=== PATIENT | female | born 1935 ===

== ENCOUNTER 2024-01-09 14:44 | Observation (INO) ==
[2024-01-09] MEDS: FAMOTIDINE 20MG IV PUSH 20 MG/5 ML SYR IV STA (15:12)
[2024-01-09 15:20] LABS: Basophils # (auto) 0.04 K/uL (0.00-0.20); Basophils % (auto) 0.5 %; Eosinophils # (auto) 0.12 K/uL (0.00-0.50); Eosinophils % (auto) 1.4 %; Hematocrit (blood only) 40.6 % (37.0-47.0); Immature Granulocytes # (auto) 0.04 K/uL (0.01-0.20); Immature Granulocytes % (auto) 0.5 %; Lymphocytes # (auto) 2.14 K/uL (1.20-3.40); Mean Corpuscular Volume 90.6 fL (80.0-100.0); Monocytes # (auto) 1.04 K/uL (0.11-0.59); Monocytes % (auto) 12.1 %; Neutrophils # (auto) 5.19 K/uL (1.40-6.50); Neutrophils % (auto) 60.5 %; Platelet Count 186 K/uL (130-400); RDW Coefficient of Variation 13.6 % (11.5-14.5); RDW Standard Deviation 45.3 fL (36.4-46.3); Red Blood Count 4.48 M/uL (4.20-5.40); White Blood Count 8.57 K/ul (4.8-10.8)
[2024-01-09 15:31] LABS: Potassium 4.1 mmol/L (3.5-5.1)
[2024-01-09 15:32] LABS: Albumin Globulin Ratio 1.5 (0.9-2); Albumin Level 4.2 gm/dl (3.4-5.0); BUN Creatinine Ratio 11.5 (10-20); Bilirubin,Total 0.3 mg/dl (0.2-1.0); Calcium 9.3 mg/dl (8.6-10.3); Creatinine Clr Calc Pharmacy 28.5 ml/min; Est GFR (African American) 41.7 ml/min; Globulin 2.8 gm/dl (2.5-4.0)
[2024-01-09 15:43] LABS: Troponin I High Sensitivity 68.5 pg/ml (0-14)
--- NOTE | 2024-01-09 15:52 | Emergency Department Note ---
Impression & Plan Chest pain, Non-ST elevation NV (NSTEMI) ED Provider Note Provider: Sebastien Bhandari MD DATE OF SERVICE: 01/09/2024 CHIEF COMPLAINT: Chest discomfort HISTORY OF PRESENT ILLNESS: Patient is a 88-year-old female history of dementia, A-fib on Eliquis and GERD presenting here today via ambulance from her facility. EMS states the patient had some chest pain was brought here for evaluation today. They tend to give aspirin the patient seem to have vomited this up quick order. Patient herself states she has had a little bit of central to left lower chest discomfort. Does know her age but unable to give me a clear detail of what happened today. Denies nausea or vomiting to me at this time. Denies other abdominal pain here initially. Daughter shortly thereafter arrives. Confirms the patient is at her baseline with her dementia. Reported transient episode around 10 days morning of pain but not atypical for her to have a little bit of heartburn or chest discomfort at times. Had a negative cardiac workup in March including stress test by her report. Around 05-17 30p the patient had onset of left chest pain that seem to worsen a bit different and given ongoing symptoms came here for evaluation. Patient often reports feeling some numbness or atypical pain across the left chest. No trauma reported or syncope. No cardiac history otherwise reported. Daughter reports the patient is quite sensitive to pain even getting blood work with a blood pressure cuff can make her tearful and anxious. 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 EOMI. NECK: Trachea midline. ENT: Mucous membranes pink and moist. LUNGS: Airway patent. No retractions. Breath sounds clear with good air entry bilaterally. HEART: Regular rate and rhythm. No chest wall tenderness ABDOMEN: Soft and non-tender, without guarding or rebound. SKIN: Acyanotic, warm, dry, without rashes EXTREMITIES: Without swelling, tenderness or deformity NEUROLOGICAL: No focal deficits. No aphasia. No facial droop or slurred speech. EK bpm. Normal sinus rhythm. No PVC or PAC. No acute ST segment elevation or depression with a QTc of 446. CONTINUOUS CARDIAC MONITORING: was ordered and showed a heart rate of 60s bpm in normal sinus rhythm Patient's laboratory studies and imaging reviewed. Differential includes Cardiac ischemia, aortic dissection, pulmonary embolism, pneumothorax, pneumonia, pericarditis, myocarditis, esophageal rupture, GERD, cholecystitis, pancreatitis, musculoskeletal, as well as other pathologies. IMPRESSION/MEDICAL DECISION MAKING: Patient in obvious distress. He is appearing somewhat hypertensive here. Anticoagulate lower suspicion for VTE. Not in again in any extremis and doubt dissection. Has been according to daughter experiencing intermittent GERD symptoms. Had cardiac workup and negative stress test last March. Some transient pain tender this morning but then this different more severe persistent pain in the left chest around 05-17 30 in the last more than an hour and thus daughter brought here for evaluation. Patient did vomit of the aspirin prior to arrival. Benign abdomen lower suspicion for acute intra-abdominal pathology. No reproducible chest wall tenderness. Question, to this could be GERD. Given some IV Pepcid here. Denies nausea currently. Not a good historian to her online dementia. Chest x-ray here without pneumothorax with what appears to be some fibrosis of the lungs but no clear consolidation. EKG is reassuring without STEMI. Blood work completed without evidence of anemia or leukocytosis. No significant electrolyte abnormality or signs of acute hepatitis or pancreatitis. Troponin does return elevated at 68.5.. Do not have previous in the systems here or with case management's assistance no values in the [place] system. Obviously have concerned given troponin elevation and reports of some chest pain and odd sensation in the left chest. At this point discussed with patient and daughter staying for further cardiac evaluation and they were agreeable. Patient with some mild intermittent discomfort but no severe pain in the chest. It is quite irritated and upset with the blood pressure cuff which is causing her discomfort of the arm when it squeezes. [facility] hospitalist was contacted regarding the patient for admission. Will attempt to give dose of aspirin again. Patient already anticoag with Shyann. DIAGNOSIS: Chest pain, elevated troponin, hypertension DISPOSITION: Hospitalist will evaluate Patient was agreeable with this plan. Critical Care I have personally spent 33 minutes of critical care time in the direct management of this patient. This includes bedside care, interpretation of diagnostic studies, and testing, discussion with consultants, patient, and family members, and other required patient management activities. These 33 minutes is in excess of all separately billable procedures. Past Med/Surg History Problem List (Updated 01/09/24 @ 18:31 by Sebastien Bhandari M.D.) Non-ST elevation NV (NSTEMI) (Acute) Chest pain (Acute) Medical History Mood disorder Dementia Acquired hypothyroidism Dyslipidemia CKD (chronic kidney disease), stage III HTN (hypertension) Atrial fibrillation Recurrent deep vein thrombosis (DVT) Social History (Updated 01/09/24 @ 16:44 by Claudia Cerna PA-C) Smoking Status: Former smoker Smoking End Date: 1969; Hx Alcohol Use: No Hx Substance Use: No Feels Safe at Home: Yes Allergies Allergies Allergy/AdvReac Type Severity Reaction Status Date / Time No Known Allergies Allergy Unverified 01/09/24 16:40 Home Meds Home Medications Medication Instructions Recorded Confirmed apixaban 2.5 mg tablet (Eliquis) 2.5 mg PO BID 01/09/24 01/09/24 cholecalciferol (vitamin D3) 25 25 mcg PO DAILY 01/09/24 01/09/24 mcg (1,000 unit) tablet (Vitamin D3) cyanocobalamin (vitamin B-12) 1,000 mcg PO DAILY 01/09/24 01/09/24 1,000 mcg tablet (Vitamin B-12) docusate sodium 50 mg capsule 250 mg PO HS 01/09/24 01/09/24 donepezil 5 mg tablet 2.5 mg PO QAM 01/09/24 01/09/24 levothyroxine 137 mcg tablet 137 mcg PO DAILYBB 01/09/24 01/09/24 melatonin 3 mg tablet 3 mg PO HS 01/09/24 01/09/24 metoprolol succinate 50 mg 50 mg PO HS 01/09/24 01/09/24 tablet,extended release 24 hr multivitamin 1 tab PO DAILY 01/09/24 01/09/24 omeprazole 20 mg capsule,delayed 20 mg PO QAM 01/09/24 01/09/24 release sertraline 50 mg tablet 50 mg PO QAM 01/09/24 01/09/24 simvastatin 20 mg tablet 20 mg PO HS 01/09/24 01/09/24 vitamins A,C,F-futc-gkirkx 4,296 1 cap PO AMPM 01/09/24 01/09/24 mcg-226 mg-90 mg capsule (PreserVision AREDS) Results & Data (ED) Vital Signs Vital Signs - 24 hr 01/09/24 14:56 01/09/24 15:02 01/09/24 15:07 Pulse Rate 69 64 Pulse Rate [Right Brachial] Pulse Rhythm Regular Pulse Rhythm [Right Brachial] Pulse Strength Normal Pulse Strength [Right Brachial] Respiratory Rate 16 Respiratory Effort / Characteristics Non-Labored Respiratory Depth Normal Respiratory Pattern Regular Blood Pressure 178/102 H Blood Pressure [Right Arm] Blood Pressure Mean 127 Blood Pressure Mean [Right Arm] Blood Pressure Position Sitting Blood Pressure Position [Right Arm] Pulse Oximetry 95 Oxygen Delivery Method Room Air Room Air Sepsis New/Unexplained Change in Mental Status No Sepsis Action Taken by Nursing No Action Required 01/09/24 16:36 01/09/24 17:42 01/09/24 18:00 Pulse Rate Pulse Rate [Right Brachial] 65 63 64 Pulse Rhythm Pulse Rhythm [Right Brachial] Regular Regular Regular Pulse Strength Pulse Strength [Right Brachial] Normal Normal Normal Respiratory Rate 16 18 20 Respiratory Effort / Characteristics Non-Labored Non-Labored Non-Labored Respiratory Depth Normal Normal Normal Respiratory Pattern Regular Regular Regular Blood Pressure Blood Pressure [Right Arm] 172/87 H 130/74 130/85 Blood Pressure Mean Blood Pressure Mean [Right Arm] 115 92 100 Blood Pressure Position Blood Pressure Position [Right Arm] Sitting Lying Sitting Pulse Oximetry 96 99 100 Oxygen Delivery Method Room Air Room Air Room Air Sepsis New/Unexplained Change in Mental Status Sepsis Action Taken by Nursing Laboratory Data 01/09/24 14:59 01/09/24 14:59 Lab Results 01/09/24 01/09/24 Range/Units 14:59 17:19 WBC 8.57 (4.8-10.8) K/ul RBC 4.48 (4.20-5.40) M/uL Hgb 13.0 (12.0-16.0) g/dl Hct 40.6 (37.0-47.0) % MCV 90.6 (80.0-100.0) fL MCH 29.0 (25.0-34.0) pg MCHC 32.0 (32.0-36.0) g/dL RDW Std Deviation 45.3 (36.4-46.3) fL RDW Coeff of Marcos 13.6 (11.5-14.5) % Plt Count 186 (130-400) K/uL MPV 9.0 L (9.4-12.4) fL Immature Gran % (Auto) 0.5 % Neut % (Auto) 60.5 % Lymph % (Auto) 25.0 % [place] % (Auto) 12.1 % Eos % (Auto) 1.4 % Baso % (Auto) 0.5 % Neut # (Auto) 5.19 (1.40-6.50) K/uL Lymph # (Auto) 2.14 (1.20-3.40) K/uL [place] # (Auto) 1.04 H (0.11-0.59) K/uL Eos # (Auto) 0.12 (0.00-0.50) K/uL Baso # (Auto) 0.04 (0.00-0.20) K/uL Immature Gran # (Auto) 0.04 (0.01-0.20) K/uL Sodium 136 (136-145) mmol/L Potassium 4.1 (3.5-5.1) mmol/L Chloride 103 (98-107) mmol/L Carbon Dioxide 23 (21-32) mmol/L Anion Gap 10 (3-11) BUN 15 (6-23) mg/dl Creatinine 1.31 H (0.6-1.2) mg/dl Est Cr Clr Drug Dosing 28.5 ml/min Est GFR ( Amer) 41.7 ml/min Est GFR (Non-Af Amer) 36.0 ml/min BUN/Creatinine Ratio 11.5 (10-20) Glucose 149 H (70-99(Fasting)) mg/dl Calcium 9.3 (8.6-10.3) mg/dl Total Bilirubin 0.3 (0.2-1.0) mg/dl AST 23 (13-39) U/L ALT 17 (7-52) U/L Alkaline Phosphatase 95 (34-104) U/L Troponin I High Sens 68.5 H* 488.5 H* D (0-14) pg/ml Total Protein 7.0 (6.0-8.3) gm/dl Albumin 4.2 (3.4-5.0) gm/dl Globulin 2.8 (2.5-4.0) gm/dl Albumin/Globulin Ratio 1.5 (0.9-2) Lipase 27 (11-82) U/L SARS-CoV-2, RNA, NAAT NEGATIVE (NEGATIVE) Administered Medications Discontinued Medications Aspirin (Aspirin Chew 324 Mg) 324 mg PO NOW STA Stop: 01/09/24 16:13 Last Admin: 01/09/24 17:11 Dose: 324 mg Documented By: TRANG Famotidine (Pepcid 20mg Iv Push) 20 mg in 5 mls @ 2.5 mls/min IV NOW STA Stop: 01/09/24 15:07 Last Admin: 01/09/24 15:12 Dose: 2.5 mls/min Documented By: ARS Discharge Plan Visit Data Chief Complaint: Chest Pain ED Provider: Sebastien Bhandari Discharge Problem: Chest pain, Non-ST elevation NV (NSTEMI) Patient Disposition: Being Evaluated by Hospitalist Forms Stand Alone Forms: [facility] Prescriptions Prescriptions: No Action multivitamin Tablet 1 tab PO DAILY levothyroxine 137 mcg tablet 137 mcg PO DAILYBB donepezil 5 mg tablet 2.5 mg PO QAM metoprolol succinate 50 mg tablet extended release 24 hr 50 mg PO HS cyanocobalamin (vitamin B-12) [Vitamin B-12] 1,000 mcg Tablet 1,000 mcg PO DAILY Colace 50 mg Capsule 250 mg PO HS melatonin 3 mg Tablet 3 mg PO HS simvastatin 20 mg tablet 20 mg PO HS omeprazole 20 mg capsule,delayed release(DR/EC) 20 mg PO QAM sertraline 50 mg tablet 50 mg PO QAM cholecalciferol (vitamin D3) [Vitamin D3] 25 mcg (1,000 unit) Tablet 25 mcg PO DAILY PreserVision AREDS 4,296 mcg-226 mg-90 mg Capsule 1 cap PO AMPM Eliquis 2.5 mg tablet 2.5 mg PO BID Referrals Referrals: [place] [Primary Care Provider] -
--- NOTE | 2024-01-09 16:45 | History & Physical Report ---
Date of Service January 09, 2024 Assessment & Plan (1) Chest pain: Plan: Repeat BP 172/87 (2) Dementia: Plan: Advanced dementia, oriented to person only. Requires frequent redirection/reassurance. Daughter approved to stay with her overnight by clinical coordinator Continue Donepezil HS (3) HTN (hypertension): Plan: BP elevated at 178/102 initially, improved now to 130/74 Continue Toprol, add PRN antihypertensives as needed (4) Atrial fibrillation: Plan: NSR on initial EKG. Continue Toprol, Eliquis for anticoagulation (5) Recurrent deep vein thrombosis (DVT): Plan: Continue Eliquis as above (6) Dyslipidemia: Plan: Continue statin HS (7) CKD (chronic kidney disease), stage III: Plan: Cr 1.31 today (baseline ~ 1.2-1.4). Monitor with daily BMP (8) Acquired hypothyroidism: Plan: Continue levothyroxine (9) Mood disorder: Plan: Continue SSI DVT Ppx: Eliquis Code status: DNR/DNI as confirmed with daughter/paperwork at bedside PCP: Kristen Dispo: admitted to PCU Patient seen in collaboration with Dr. Sykes. Please see addendum. I spent a total of 75 minutes coordinating, documenting, and providing care for this patient excluding time spent in the performance of separately billed services. History of Present Illness Chief Complaint: Chest pain Primary Care Provider: [facility] This is an 88-year-old female who resides at [facility] in [place] with a PMH of recurrent DVT, atrial fibrillation on Eliquis, advanced dementia, hypertension, CKD stage III, dyslipidemia, hypothyroidism and mood disorder who presents to the ED after developing chest pain this afternoon. History obtained from daughter at bedside due to patient's advanced dementia. Had typical GERD epigastric pain that morning earlier today that resolved on its own. Then around 1300 had severe central to left sided chest pain and her called the nurse and daughter. Had associated nausea and diaphoresis. When EMS came, patient was given aspirin and immediately vomited it back up. History of negative stress test in Mar 2023. Currently comfortable at rest. Is on Toprol and Eliquis for history of DVT and A fib. Does not currently follow with cardiology but daughter interested in establishing with Dr. Oseguera/[facility]. Unable to obtain remainder of ROS 2/2 dementia. Allergies Allergy/AdvReac Type Severity Reaction Status Date / Time No Known Allergies Allergy Unverified 01/09/24 16:40 Home Medications Medication Instructions Recorded Confirmed Type apixaban 2.5 mg tablet (Eliquis) 2.5 mg PO BID 01/09/24 01/09/24 History cholecalciferol (vitamin D3) 25 25 mcg PO DAILY 01/09/24 01/09/24 History mcg (1,000 unit) tablet (Vitamin D3) cyanocobalamin (vitamin B-12) 1,000 mcg PO DAILY 01/09/24 01/09/24 History 1,000 mcg tablet (Vitamin B-12) docusate sodium 50 mg capsule 250 mg PO HS 01/09/24 01/09/24 History donepezil 5 mg tablet 2.5 mg PO QAM 01/09/24 01/09/24 History levothyroxine 137 mcg tablet 137 mcg PO DAILYBB 01/09/24 01/09/24 History melatonin 3 mg tablet 3 mg PO HS 01/09/24 01/09/24 History metoprolol succinate 50 mg 50 mg PO HS 01/09/24 01/09/24 History tablet,extended release 24 hr multivitamin 1 tab PO DAILY 01/09/24 01/09/24 History omeprazole 20 mg capsule,delayed 20 mg PO QAM 01/09/24 01/09/24 History release sertraline 50 mg tablet 50 mg PO QAM 01/09/24 01/09/24 History simvastatin 20 mg tablet 20 mg PO HS 01/09/24 01/09/24 History vitamins A,C,E-xzma-mjqzhu 4,296 1 cap PO AMPM 01/09/24 01/09/24 History mcg-226 mg-90 mg capsule (PreserVision AREDS) Past Med/Surg History Problem List (Updated 01/09/24 @ 18:31 by Sebastien Bhandari M.D.) Non-ST elevation NV (NSTEMI) (Acute) Chest pain (Acute) Medical History (Updated 01/09/24 @ 18:31 by Sebastien Bhandari M.D.) Mood disorder Dementia Acquired hypothyroidism Dyslipidemia CKD (chronic kidney disease), stage III HTN (hypertension) Atrial fibrillation Recurrent deep vein thrombosis (DVT) Surgical History (Updated 01/09/24 @ 18:53 by Claudia Cerna PA-C) No pertinent past surgical history Family History Other Stroke Social History Smoking Status: Former smoker Smoking End Date: 1969; Hx Alcohol Use: No Hx Substance Use: No Feels Safe at Home: Yes Review of Systems Review of Systems: Unobtainable due to cognitive status Physical Exam Physical Exam: General Appearance: WD/WN, vitals as above, NAD, sitting up in bed, pleasantly confused Head: normocephalic, atraumatic Eyes: normal inspection, PERRL, conjunctivae normal, anicteric sclerae ENT: external ear and nose normal, oropharynx normal Neck: normal visual inspection, trachea midline, no thyromegaly Respiratory: normal respiratory effort, lungs clear to auscultation, no wheeze, rales, rhonchi. No accessory muscle use Cardiovascular: regular rate, rhythm, normal peripheral pulses, no BLE edema. Vessels: no JVD Chest: normal inspection of chest Abdomen/GI: normal bowel sounds, soft, nontender, no hepatosplenomegaly Extremities/Musculoskeletal: no cyanosis or clubbing, extremities motor strength 5/5 Neurologic: PERRL, EOMI, accommodation nl, no face palsy, no dysarthria, CN's II-XI intact bilaterally and moves all extremities Psychiatric: A+Ox person only, responds well to verbal redirection Skin: no rashes, normal color, warm/dry Results & Data Results & Data Vital Signs (Past 12 Hours) Vital Signs Pulse Resp BP Pulse Ox O2 Del Method 01/09/24 15:07 Room Air 01/09/24 15:02 64 01/09/24 14:56 69 16 178/102 H 95 Room Air Laboratory Results Short CBC 01/09/24 Range/Units 14:59 WBC 8.57 (4.8-10.8) K/ul Hgb 13.0 (12.0-16.0) g/dl Hct 40.6 (37.0-47.0) % Plt Count 186 (130-400) K/uL BMP 01/09/24 14:59 Sodium 136 Potassium 4.1 Chloride 103 Carbon Dioxide 23 BUN 15 Creatinine 1.31 H Glucose 149 H Calcium 9.3 Liver Function 01/09/24 Range/Units 14:59 Total Bilirubin 0.3 (0.2-1.0) mg/dl AST 23 (13-39) U/L ALT 17 (7-52) U/L Alkaline Phosphatase 95 (34-104) U/L Albumin 4.2 (3.4-5.0) gm/dl ECG Additional Comments: EKG with NSR at [address] changes Supervising Physician Co-Signing Physician Notes 88 yo F, resident of [facility] in [place], w/ PMH of Dementia, recurrent DVT, A fib, HTN, CKD III, HLD, Hypothyroidism, dementia and mood disorder presented to the ED for evaluation of chest pain. Patient has dementia at baseline and can tell her name. Patient at the moment did not complain of any discomfort or chest pain. Patient's daughter at bedside who stated that patient had severe chest pain at around 1:30 PM today, patient was holding her left chest, it appeared different from her other chest pain from reflux disease. Patient's blood pressure was okay, pulse was in low 40s and oxygen saturation was in the high 80s and patient appeared pale around the time. Had negative cardiac workup 04/02/2023 including a neg stress test. Labs reviewed, fairly WNL. Troponin elevated at 68.5, EKG with normal sinus rhythm, no acute ST or T changes. Trop trended to 488. Likely NSTEMI. Patient with no chest pain now. Start heparin drip, hold home Eliquis. Cardiology consult. N.p.o. midnight. As needed EKG and sublingual nitro for chest pain. Echo. Continue telemetry monitoring. c/w home metoprolol. On Exam: GENERAL: Alert and awake, oriented to self. NAD, on RA. HEENT: No pallor, no icterus. Pupils equal, round and reactive to light. Oral mucosa moist. NECK: No JVD, no neck masses. HEART: S1 and S2 heard. Regular rate and rhythm. No murmur, no gallop. RESPIRATORY SYSTEM: Normal AP diameter. No accessory muscle use. No wheezing, no crackles. ABDOMEN: Soft, bowel sounds present, nontender, no distention. CENTRAL NERVOUS SYSTEM: No facial droop. Speech is clear. Obeys simple commands. Moves extremities. EXTREMITIES: No edema, no erythema seen. I have seen and examined the patient and have discussed the case with the provider above. I agree with the assessment and plan as stated.
[2024-01-09] MEDS: ASPIRIN CHEW 324 MG PO STA (17:11)
--- NOTE | 2024-01-09 19:06 | XRay Report ---
XR chest 1V portable HISTORY: Chest pain, nonspecific COMPARISON: None. FINDINGS: No pneumothorax. The cardiac silhouette is mildly enlarged. Trace right pleural effusion. L obular density within the right hemidiaphragm may represent eventration of the hemidiaphragm or a Boc hdalek hernia. A lobular mass is considered less likely but not entirely excluded. There is mild cent ral pulmonary vascular congestion without overt edema. A few right basilar linear densities favor sub segmental atelectasis or scarring. There are calcifications within the aortic knob. No acute fracture s. IMPRESSION: 1. Cardiomegaly with mild congestive change. 2. Lobular density within the right hemidiaphragm may represent eventration of the hemidiaphragm or a Bochdalek hernia. A lobular mass is considered less likely but not entirely excluded. ACT 112: Negative or not required by law. Electronically signed by: Pato Finley M.D. 01/09/2024 7:04 PM
[2024-01-09] MEDS: HEPARIN SODIUM/DEXTROSE 25,000 UNITS/500 ML BAG IV SCH (19:26)
[2024-01-09 19:53] LABS: Partial Thromboplastin Ratio 0.9; Partial Thromboplastin Time 25 Seconds (21-31)
[2024-01-09] MEDS ORDERED: ONDANSETRON INJ 2 MG/ML 2 ML VIAL IV PRN (20:26)
[2024-01-09] MEDS ORDERED: ACETAMINOPHEN 325 MG TAB PO PRN (20:26)
[2024-01-09] MEDS ORDERED: NITROGLYCERIN SL 0.4 MG/TAB TAB SL PRN (20:26)
[2024-01-09] MEDS ORDERED: NON-FORMULARY MEDICATION (Vitamins A,C,E-Zinc-Copper [Preservision Areds] 4,296 mcg-226 mg PO SCH (20:26)
[2024-01-09] MEDS ORDERED: POLYETHYLENE (MIRALAX) 17 GM PACK PO PRN (20:26)
[2024-01-09] MEDS: DOCUSATE SODIUM 100 MG CAP PO SCH (21:18)
[2024-01-09] MEDS: SIMVASTATIN 20 MG TAB PO SCH (21:19)
[2024-01-09] MEDS: METOPROLOL SUCC 50MG EXT REL TAB PO SCH (21:19)
[2024-01-09] MEDS: MELATONIN 3 MG TAB PO SCH (21:19)
[2024-01-09] MEDS: Heparin IV Adult Wt-Based Standard *NO* INITIAL Bolus Protocol IV STA (21:41)
[2024-01-10 01:46] LABS: ANTI-Xa, UFH(UnfractionatedHep 0.95 IU/ml (0.3-0.7)
[2024-01-10] MEDS: LEVOTHYROXINE SODIUM 137 MCG TABLET PO SCH (06:36)
--- NOTE | 2024-01-10 08:36 | Hospitalist Progress Note ---
Date of Service January 10, 2024 Assessment & Plan (1) Chest pain: (2) Dementia: (3) HTN (hypertension): (4) Atrial fibrillation: (5) Recurrent deep vein thrombosis (DVT): (6) Dyslipidemia: (7) CKD (chronic kidney disease), stage III: (8) Acquired hypothyroidism: (9) Mood disorder: Plan This is an 88-year-old female who resides at [facility] in [place] with a PMH of recurrent DVT, atrial fibrillation on Eliquis, advanced dementia, hypertension, CKD stage III, dyslipidemia, hypothyroidism and mood disorder who presented to the ED after developing chest pain. NSTEMI EKG with NSR, no acute ST changes HS trop 68.5 to high of 2628.1 at this time Continue heparin drip, holding home Eliquis Per discussion with daughter Claudia at bedside at 1915 on day of admission, would not want interventional management such as cardiac cath as of now Echo pending Continue with telemetry monitoring Continue Toprol, statin, aspirin [facility] cardiology consulted per request of family, appreciate recs Dementia Advanced dementia, oriented to person only. Requires frequent redirection/reassurance. Daughter approved to stay with her overnight by clinical coordinator Continue Donepezil HS HTN (hypertension) BP elevated at 178/102 initially, improved now to 130/74 Continue Toprol, add PRN antihypertensives as needed Atrial fibrillation NSR on initial EKG. Continue Toprol, Eliquis for anticoagulation Recurrent deep vein thrombosis (DVT) Continue Eliquis as above Dyslipidemia Continue statin HS CKD (chronic kidney disease), stage III Cr 1.31 today (baseline ~ 1.2-1.4). Monitor with daily BMP Acquired hypothyroidism Continue levothyroxine Mood disorder Continue SSI DVT Ppx: IV heparin Code status: DNR/DNI as confirmed with daughter/paperwork at bedside PCP: Kristen Dispo: admitted to PCU Admission and Anticipated Discharge Date Admission Date: January 09, 2024 Results & Data Results & Data Vital Signs (Past 12 Hours) Vital Signs Temp Pulse Pulse Resp BP Pulse Ox O2 Del Method 01/10/24 07:12 36.6 C 58 L 17 120/64 93 Room Air 01/10/24 04:58 62 16 95 Room Air 01/09/24 23:41 36.6 C 63 16 137/76 97 Room Air 01/09/24 21:31 60 01/09/24 20:37 36.7 C 57 L 16 148/75 H 97 Room Air 01/09/24 20:34 62
[2024-01-10 09:23] LABS: Hematocrit (blood only) 35.8 % (37.0-47.0); Hemoglobin 11.9 g/dl (12.0-16.0); Mean Corpuscular Hemoglobin 29.1 pg (25.0-34.0); Mean Corpuscular Hgb Conc 33.2 g/dL (32.0-36.0); Mean Corpuscular Volume 87.5 fL (80.0-100.0); Mean Platelet Volume 9.1 fL (9.4-12.4); Platelet Count 179 K/uL (130-400); RDW Coefficient of Variation 13.8 % (11.5-14.5); RDW Standard Deviation 44.2 fL (36.4-46.3); Red Blood Count 4.09 M/uL (4.20-5.40); White Blood Count 7.29 K/ul (4.8-10.8)
[2024-01-10] MEDS: ASPIRIN 81 MG ECTAB PO SCH (09:28)
[2024-01-10] MEDS: CHOLECALCIFEROL 25 MCG (1000 UNITS) TAB PO SCH (09:29)
[2024-01-10] MEDS: SERTRALINE HCL 50 MG TABLET PO SCH (09:29)
[2024-01-10] MEDS: CYANOCOBALAMIN (B-12) 500 MCG TABLET PO SCH (09:29)
[2024-01-10] MEDS: DONEPEZIL HCL 5 MG TAB PO SCH (09:29)
[2024-01-10] MEDS: PANTOprazole 40 MG TAB PO SCH (09:29)
[2024-01-10] MEDS: MULTIVITAMIN TAB PO SCH (09:29)
[2024-01-10 09:50] LABS: ANTI-Xa, UFH(UnfractionatedHep 1.17 IU/ml (0.3-0.7)
[2024-01-10 09:51] LABS: BUN Creatinine Ratio 11.5 (10-20); Chol HDL Ratio 2.7 (0-5); Creatinine Clr Calc Pharmacy 30.6 ml/min; Est GFR (African American) 45.5 ml/min; Est GFR (Non-African American) 39.2 ml/min; Potassium 4.1 mmol/L (3.5-5.1)
[2024-01-10 09:53] LABS: Estimated Average Glucose 120 mg/dl; Hemoglobin A1C 5.8 % (4.5-5.6)
--- NOTE | 2024-01-10 11:20 | XCELERA ---
[id number] [id number]
[2024-01-10 15:31] VITALS: BP 110/71; PULSE 67; RESP 16; TEMP 98.8; O2SAT 95
--- NOTE | 2024-01-10 16:06 | Communication Note ---
Date of Service: January 10, 2024 By CMS guidelines, a determination that the admission or continued stay is not medically necessary has been made by a member of the UR committee and a ph ysician for this hospital stay, therefore a Code 44 will be completed and the Inpatient admission will be changed to outpatient.
--- NOTE | 2024-01-10 16:09 | Communication Note ---
Date of Service: January 10, 2024 By CMS guidelines, a determination that the admission or continued stay is not medically necessary has been made by a member of the UR committee and a phys ician for this hospital stay, therefore a Code 44 will be completed and the Inpatient admission will be changed to outpatient.
--- NOTE | 2024-01-10 16:09 | Discharge Summary ---
Discharge Summary Date of Service January 10, 2024 Principal Dx & Hospital Course #1 = Principal Diagnosis (1) Chest pain: (2) Dementia: (3) HTN (hypertension): (4) Atrial fibrillation: (5) Recurrent deep vein thrombosis (DVT): (6) Dyslipidemia: (7) CKD (chronic kidney disease), stage III: (8) Acquired hypothyroidism: (9) Mood disorder: Plan This is an 88-year-old female who resides at [facility] with a PMH of recurrent DVT, atrial fibrillation on Eliquis, advanced dementia, hypertension, CKD stage III, dyslipidemia, hypothyroidism and mood disorder who presented to the ED after developing chest pain. NSTEMI EKG with NSR, no acute ST changes HS trop 68.5 to peak of 2628.1 Echo with EF 60-65%, mild LVH, mild base to mid inferior hypokinesis, normal RA and PA pressures, Grade 1 diastolic failure held home Eliquis and was started on a heparin drip Per discussion with daughter Claudia at bedside at 1915 on day of admission, would not want interventional management such as cardiac cath Per further discussion, pt's family stated that they would like conservative management with discharge back to [facility] the day after admission. Cardiology was consulted, appreciate recs. Recommended starting Imdur 30mg daily and following up with [facility]. Continue other home medications. Dementia Advanced dementia, oriented to person only. Requires frequent redirection/reassurance. Daughter approved to stay with her overnight by clinical coordinator Continue Donepezil HS HTN (hypertension) BP elevated at 178/102 initially, improved to normal range Continued Toprol PCP follow up Atrial fibrillation NSR on initial EKG. Continue Toprol and Eliquis for anticoagulation Recurrent deep vein thrombosis (DVT) Continue Eliquis as above Dyslipidemia Continue statin HS CKD (chronic kidney disease), stage III Cr 1.31 today (baseline ~ 1.2-1.4). Monitor with daily BMP Acquired hypothyroidism Continue levothyroxine Mood disorder Continue SSI Notes For Next Care Provider please ensure follow up with [facility] per family's request Medication Changes From Visit Per Cardiology: Imdur 30mg daily Admission HPI Per Admitting Provider This is an 88-year-old female who resides at [facility] with a PMH of recurrent DVT, atrial fibrillation on Eliquis, advanced dementia, hypertension, CKD stage III, dyslipidemia, hypothyroidism and mood disorder who presents to the ED after developing chest pain this afternoon. History obtained from daughter at bedside due to patient's advanced dementia. Had typical GERD epigastric pain that morning earlier today that resolved on its own. Then around 1300 had severe central to left sided chest pain and her called the nurse and daughter. Had associated nausea and diaphoresis. When EMS came, patient was given aspirin and immediately vomited it back up. History of negative stress test in Mar 2023. Currently comfortable at rest. Is on Toprol and Eliquis for history of DVT and A fib. Does not currently follow with cardiology but daughter interested in establishing with Dr. Oseguera/[facility]. Unable to obtain remainder of ROS 2/2 dementia. Admission Exam Per Admitting Provider General Appearance: WD/WN, vitals as above, NAD, sitting up in bed, pleasantly confused Head: normocephalic, atraumatic Eyes: normal inspection, PERRL, conjunctivae normal, anicteric sclerae ENT: external ear and nose normal, oropharynx normal Neck: normal visual inspection, trachea midline, no thyromegaly Respiratory: normal respiratory effort, lungs clear to auscultation, no wheeze, rales, rhonchi. No accessory muscle use Cardiovascular: regular rate, rhythm, normal peripheral pulses, no BLE edema. Vessels: no JVD Chest: normal inspection of chest Abdomen/GI: normal bowel sounds, soft, nontender, no hepatosplenomegaly Extremities/Musculoskeletal: no cyanosis or clubbing, extremities motor strength 5/5 Neurologic: PERRL, EOMI, accommodation nl, no face palsy, no dysarthria, CN's II-XI intact bilaterally and moves all extremities Psychiatric: A+Ox person only, responds well to verbal redirection Skin: no rashes, normal color, warm/dry Discharge Exam General: Alert, orientedx1. Psych: Appropriate mood and affect Neuro: Alert, orientedx1. HEENT: NC/AT CV: RRR Resp: Breath sounds clear bilaterally, no increased effort of breathing. Abdomen: Soft, nontender, nondistended. Extremities:edema in lower extremities bilaterally. Updated Medication List Medication Instructions Recorded Confirmed Type apixaban 2.5 mg tablet (Eliquis) 2.5 mg PO BID 01/09/24 01/09/24 History cholecalciferol (vitamin D3) 25 25 mcg PO DAILY 01/09/24 01/09/24 History mcg (1,000 unit) tablet (Vitamin D3) cyanocobalamin (vitamin B-12) 1,000 mcg PO DAILY 01/09/24 01/09/24 History 1,000 mcg tablet (Vitamin B-12) docusate sodium 50 mg capsule 250 mg PO HS 01/09/24 01/09/24 History donepezil 5 mg tablet 2.5 mg PO QAM 01/09/24 01/09/24 History levothyroxine 137 mcg tablet 137 mcg PO DAILYBB 01/09/24 01/09/24 History melatonin 3 mg tablet 3 mg PO HS 01/09/24 01/09/24 History metoprolol succinate 50 mg 50 mg PO HS 01/09/24 01/09/24 History tablet,extended release 24 hr multivitamin 1 tab PO DAILY 01/09/24 01/09/24 History omeprazole 20 mg capsule,delayed 20 mg PO QAM 01/09/24 01/09/24 History release sertraline 50 mg tablet 50 mg PO QAM 01/09/24 01/09/24 History simvastatin 20 mg tablet 20 mg PO HS 01/09/24 01/09/24 History vitamins A,C,E-ebap-kzqmbk 4,296 1 cap PO AMPM 01/09/24 01/09/24 History mcg-226 mg-90 mg capsule (PreserVision AREDS) isosorbide mononitrate 30 mg 30 mg PO DAILY #30 tabs 01/10/24 Rx tablet,extended release 24 hr Hospital Stay Data Consultations 01/09/24 16:31 ED Decision to Admit Stat 01/09/24 18:02 Consult Cardiology Routine Diagnostic Imagining Performed Chest X-Ray 01/09/24 15:07 XR chest 1V portable HISTORY: Chest pain, nonspecific COMPARISON: None. FINDINGS: No pneumothorax. The cardiac silhouette is mildly enlarged. Trace right pleural effusion. Lobular density within the right hemidiaphragm may represent eventration of the hemidiaphragm or a Bochdalek hernia. A lobular mass is considered less likely but not entirely excluded. There is mild central pulmonary vascular congestion without overt edema. A few right basilar linear densities favor subsegmental atelectasis or scarring. There are calcifications within the aortic knob. No acute fractures. IMPRESSION: 1. Cardiomegaly with mild congestive change. 2. Lobular density within the right hemidiaphragm may represent eventration of the hemidiaphragm or a Bochdalek hernia. A lobular mass is considered less likely but not entirely excluded. ACT 112: Negative or not required by law. Electronically signed by: Pato Finley M.D. 01/09/2024 7:04 PM Pending Results Patient Have Any Pending Studies at Discharge: No Discharge Instructions Given to Patient (Per Discharging Provider) Elvira, You are being discharged back to your [facility] per you/family's request. You were seen by Cardiology and after further discussion with you and your family, they recommended discharge home with the medication Imdur. Please take it as prescribed. They recommend follow up with [facility] (Dr Oseguera's team) per your/family's preference. Please also keep close follow up with your primary care provider after discharge. Please do not hesitate to come back to the emergency room if your symptoms worsen or return. It was a pleasure taking care of you while you were here. Total Time Total Time Spent Total Time Spent (In Minutes): 65
--- NOTE | 2024-01-10 16:32 | Cardiology Consultation ---
Date of Consultation January 10, 2024 Assessment & Plan (1) Non-ST elevation [place] (NSTEMI): 2. Dementia 3. Recurrent VTE on Eliquis 4. Paroxysmal atrial fibrillation 5. Stage III CKD Here with chest pain and elevated troponin consistent with ACS. Chest pain-free since admission. Hemodynamically and electrically stable. No signs of heart failure. LV function preserved on echo. Patient is DNR/DNI and with her dementia family prefers more conservative approach to management. Agree with this decision. Will defer further ischemic testing at this time. Recommend medical management with additional antianginal therapy. Can discontinue heparin now Can resume Eliquis starting tonight Would continue aspirin 81 mg for now. Likely discontinue on follow-up Add Imdur 30 mg daily Continue current Toprol-XL receives care from Dr. Oseguera. Follow-up his team in next 3 to 4 weeks. If refractory symptoms in the future cardiac catheterization could be considered for pain control/quality of life. History of Present Illness Attending Physician: Siena Ly MD History of Present Illness Mrs. Davis is a very pleasant 88-year-old woman seen today in the setting of suspected ACS. Patient has dementia with significant short-term memory loss. She resides at [facility] with her . Past medical history markable for recurrent DVT on Eliquis, paroxysmal atrial fibrillation, GERD, hypertension, CKD, dyslipidemia and hypothyroidism. Patient states she is feeling well today. She denies any chest pain or shortness of breath. Unable to provide additional history. Her daughter Claudia provide remainder of history. Patient has been experiencing intermittent episodes of burning chest discomfort relieved with sitting up for some time. Symptoms attributed to GERD. Yesterday had more persistent pain that radiated around her left side into her arm. Still in pain on arrival lasting an additional 30 minutes. ECG showed no dynamic ST changes. HS TropI trended up to 2600 before downtrending. Echo today showed normal LV function with questionable inferior/posterior wall motion abnormality. Telemetry unremarkable. Allergies Allergy/AdvReac Type Severity Reaction Status Date / Time No Known Allergies Allergy Unverified 01/09/24 16:40 Home Medications Medication Instructions Recorded Confirmed Type apixaban 2.5 mg tablet (Eliquis) 2.5 mg PO BID 01/09/24 01/09/24 History cholecalciferol (vitamin D3) 25 25 mcg PO DAILY 01/09/24 01/09/24 History mcg (1,000 unit) tablet (Vitamin D3) cyanocobalamin (vitamin B-12) 1,000 mcg PO DAILY 01/09/24 01/09/24 History 1,000 mcg tablet (Vitamin B-12) docusate sodium 50 mg capsule 250 mg PO HS 01/09/24 01/09/24 History donepezil 5 mg tablet 2.5 mg PO QAM 01/09/24 01/09/24 History levothyroxine 137 mcg tablet 137 mcg PO DAILYBB 01/09/24 01/09/24 History melatonin 3 mg tablet 3 mg PO HS 01/09/24 01/09/24 History metoprolol succinate 50 mg 50 mg PO HS 01/09/24 01/09/24 History tablet,extended release 24 hr multivitamin 1 tab PO DAILY 01/09/24 01/09/24 History omeprazole 20 mg capsule,delayed 20 mg PO QAM 01/09/24 01/09/24 History release sertraline 50 mg tablet 50 mg PO QAM 01/09/24 01/09/24 History simvastatin 20 mg tablet 20 mg PO HS 01/09/24 01/09/24 History vitamins A,C,O-ttrv-tugius 4,296 1 cap PO AMPM 01/09/24 01/09/24 History mcg-226 mg-90 mg capsule (PreserVision AREDS) isosorbide mononitrate 30 mg 30 mg PO DAILY #30 tabs 01/10/24 Rx tablet,extended release 24 hr Patient History Medical History (Updated 01/09/24 @ 18:31 by Sebastien Bhandari M.D.) Mood disorder Dementia Acquired hypothyroidism Dyslipidemia CKD (chronic kidney disease), stage III HTN (hypertension) Atrial fibrillation Recurrent deep vein thrombosis (DVT) Surgical History (Updated 01/09/24 @ 18:53 by Claudia Cerna PA-C) No pertinent past surgical history Family History Other Stroke Social History Smoking Status: Unknown if ever smoked Smoking End Date: 1969; Hx Alcohol Use: No Hx Substance Use: No Preferred Language: Tristanian Communication Ability: Impaired [employer] Upholsterer Required: No Beliefs That Will Affect Care: None Current Living Situation: Spouse and Personal Care Facility Current Living Situation Comment: [facility] Other Information That Helps Us Care for You: No Feels Safe at Home: Yes Safety Concerns: Feels Safe At This Time Assistive Devices: Walker Review of Systems Review of Systems: All systems reviewed & are unremarkable except as noted in HPI & below Physical Exam Physical Exam: General: Comfortable HEENT: Sclerae anicteric Lungs: Clear to auscultation bilaterally, no crackles or wheezes Cardiac: Regular rate and rhythm, no murmurs. No JVD Vascular: 2+ radial, Abdomen: Soft, nontender Extremities: Well perfused, no peripheral edema Neuro: Nonfocal Psych: Alert, normal affect and mood Results & Data Vital Signs (Past 12 Hours) Vital Signs Temp Pulse Pulse Pulse Resp BP Pulse Ox 01/10/24 15:31 98.8 F 67 16 110/71 95 01/10/24 13:52 97.2 F L 61 64 17 106/65 96 01/10/24 11:26 97.2 F L 61 17 106/65 96 01/10/24 08:00 63 01/10/24 07:12 97.9 F 58 L 17 120/64 93 01/10/24 04:58 62 16 95 O2 Del Method 01/10/24 15:31 Room Air 01/10/24 13:52 01/10/24 11:26 Room Air 01/10/24 08:00 01/10/24 07:12 Room Air 01/10/24 04:58 Room Air PG Care Time/CCT Total # of Minutes Spent Total Time Spent with Patient: Total time spent is greater than 50% in coordination of care (as documented) at patient's floor/unit and/or counseling patient: Coding Level of Care Code 93273 INT INP/OBS CARE 2/55MIN Diagnoses Non-ST elevation [place] (NSTEMI) I21.4
--- NOTE | 2024-01-11 05:37 | Electrocardiogram Report ---
Test Reason : Blood Pressure : */* mmHG Vent. Rate : 58 BPM Atrial Rate : 58 BPM P-R Int : 178 ms QRS Dur : 70 ms QT Int : 478 ms P-R-T Axes : 77 48 61 degrees QTcB Int : 469 ms Sinus bradycardia Septal infarct , age undetermined Abnormal ECG When compared with ECG of 09-Jan-2024 14:52, Septal infarct is now Present Confirmed by Sina Chatterjee ([id number]) on 01/11/2024 5:37:45 AM Referred By: [facility] Confirmed By: Sina Chatterjee
--- NOTE | 2024-01-12 15:43 | Electrocardiogram Report ---
Test Reason : Blood Pressure : */* mmHG Vent. Rate : 63 BPM Atrial Rate : 63 BPM P-R Int : 158 ms QRS Dur : 72 ms QT Int : 436 ms P-R-T Axes : 70 54 54 degrees QTcB Int : 446 ms Normal sinus rhythm Normal ECG No previous ECGs available Confirmed by Kera Brothers (Phyllis) on 01/09/2024 7:15:15 PM Referred By: [facility] [place] [facility] Confirmed By: Kera Brothers
== END 2024-01-10 17:37 | disposition home or self-care (01) ==
LOC: ED 14:44 → 4W 14:44 → SUATTDRO 16:41 → 4W 20:01

== ENCOUNTER 2024-01-11 01:46 | Inpatient (IN) ==
[2024-01-11 02:19] LABS: Basophils # (auto) 0.04 K/uL (0.00-0.20); Basophils % (auto) 0.3 %; Eosinophils # (auto) 0.06 K/uL (0.00-0.50); Eosinophils % (auto) 0.5 %; Hemoglobin 13.4 g/dl (12.0-16.0); Immature Granulocytes # (auto) 0.06 K/uL (0.01-0.20); Immature Granulocytes % (auto) 0.5 %; Lymphocytes # (auto) 2.36 K/uL (1.20-3.40); Lymphocytes % (auto) 20.2 %; Mean Corpuscular Hemoglobin 29.3 pg (25.0-34.0); Mean Corpuscular Hgb Conc 32.7 g/dL (32.0-36.0); Mean Corpuscular Volume 89.7 fL (80.0-100.0); Monocytes % (auto) 9.4 %; Neutrophils # (auto) 8.07 K/uL (1.40-6.50); Neutrophils % (auto) 69.1 %; Platelet Count 201 K/uL (130-400); RDW Standard Deviation 45.9 fL (36.4-46.3); Red Blood Count 4.57 M/uL (4.20-5.40); White Blood Count 11.69 K/ul (4.8-10.8)
[2024-01-11] MEDS: FAMOTIDINE 20MG IV PUSH 20 MG/5 ML SYR IV STA (02:22)
[2024-01-11] MEDS: SODIUM CHLORIDE 0.9% 1,000 ML IV SCH (02:22)
[2024-01-11] MEDS: ACETAMINOPHEN 1,000 MG/100 ML VIAL IV STA (02:24)
[2024-01-11] MEDS: NITROGLYCERIN 2% OINTMENT 30GM TUBE EXT STA (02:24)
[2024-01-11 02:25] LABS: Prothrombin Time 10.8 Seconds (9.0-12.0)
[2024-01-11 02:48] LABS: Alanine Aminotransferase 27 U/L (7-52); Albumin Globulin Ratio 1.6 (0.9-2); Albumin Level 4.5 gm/dl (3.4-5.0); Alkaline Phosphatase 108 U/L (34-104); Anion Gap 12 (3-11); Aspartate Aminotransferase 42 U/L (13-39); BUN Creatinine Ratio 12.3 (10-20); Bilirubin,Total 0.3 mg/dl (0.2-1.0); Blood Urea Nitrogen 20 mg/dl (6-23); Calcium 9.6 mg/dl (8.6-10.3); Carbon Dioxide 23 mmol/L (21-32); Chloride 100 mmol/L (98-107); Est GFR (Non-African American) 27.6 ml/min; Globulin 2.9 gm/dl (2.5-4.0); Glucose 168 mg/dl (70-99(Fasting)); Lipase 24 U/L (11-82); Potassium 4.1 mmol/L (3.5-5.1); Sodium 135 mmol/L (136-145); Total Protein 7.4 gm/dl (6.0-8.3)
[2024-01-11 02:56] LABS: Troponin I High Sensitivity 1151.4 pg/ml (0-14)
[2024-01-11] MEDS: MoRPHine SULFATE 2 MG/ML CARP IV STA ×2 (03:46→06:36)
--- NOTE | 2024-01-11 03:47 | Emergency Department Note ---
Impression & Plan Chest pain, ACS (acute coronary syndrome), CHF (congestive heart failure) ED Provider Note ED Provider Note NAME: RICKY MOREIRA AGE:88 SEX: Female : 1935 ARRIVES VIA: EMS INFORMANT: Patient, EMS, family ED PROVIDER(s): Deirdre Morales DO CHIEF COMPLAINT: chest pain HPI: This is an 88 yo female who presents to the ER via EMS due to concern for c/o chest pain. Patient with dementia and unable to provide much hx. Several family members at home help to provide hx. Patient was recently admitted for chest pain and had an NSTEMI and family did not want any interventions including cath so medical mgmt suggested and patient discharged home yesterday. Here she holds her chest intermittent and appears anxious. Family stated they were worried about controlling her pain and so decided to bring her back to the ER but do not want any invasive procedures and state she is DNR/DNI. PAST MEDICAL HISTORY:See Below PAST SURGICAL HISTORY:See Below FAMILY HISTORY:See Below SOCIAL HISTORY:See Below HOME MEDICATIONS:See Below ALLERGIES:See Below VITALS:See Below PHYSICAL EXAMINATION: GENERAL: alert, well nourished, mild distress, non-toxic, anxious EYE EXAM: normal conjunctiva, PERRL and EOM's grossly intact OROPHARYNX: no exudate, no erythema, lips, buccal mucosa, and tongue normal and mucous membranes are moist NECK: supple, no nuchal rigidity, no adenopathy, non-tender LUNGS: Clear to auscultation. Normal chest wall mechanics, no w/r/r HEART: no murmurs, S1 normal and S2 normal ABDOMEN: abdomen soft, non-tender, normo-active bowel sounds, no masses, no rebound or guarding. BACK: Back is symmetrical on inspection and there is no deformity, no midline tenderness, no CVA tenderness. SKIN: no rashes, petechiae, orbruising UPPER EXTREMITIES: upper extremities are grossly normal. FROM, nml pulses b/l. LOWER EXTREMITIES: No pitting edema. FROM, nml pulses b/l. NEURO EXAM: Confused, cranial nerves II-XII grossly intact, normal speech, no facial droop,nogross weakness of arms, no gross weakness of legs. Gross sensation intact. No ataxia. Vital Signs: reviewed and remarkable Differential Diagnosis: acute coronary syndrome, pericarditis, pulmonary embolus, aortic dissection, pneumonia, pneumothorax, musculoskeletal pain, shingles, GERD, GI bleed, as well as others were considered MEDICAL DECISION MAKING: This is an 88 yo female brought in by EMS due to family's concern for recurrent chest pain that they have opted to treat conservatively after recent admission and NSTEMI. VS stable. After significant bedside discussion regarding family wishes, labs were drawn and sent, IV established, EKG and CXR performed and interpreted at bedside, and patient placed on telemetry. She was placed on oxygen via NC, and given IV tylenol and pepcid and nitro paste applied. Repeat EKG with improvement and troponin downtrending compared to prior. She was initially started on maintenance IVF however she then began to appear more tachypneic so this was stopped. SHe was reevaluated and not had rales b/l on auscultation. Repeat EKG and cxr performed, she was given IV morphine and IV lasix. CXR confirmed evolving pulmonary edema. Family made aware of findings. CAse discussed with the hospitalist for additional evaluation and mgmt and palliative care at this time. Consultation(s): 0355: Discussed with Dr. Neely, [facility] hospitalist team, for additional evaluation and management ER Treatment Provided: See below 0235: Discussed with daughter at bedside extensively. 0335: Patient appears to have increased work of breathing and tachypnea. She did have downtrending oxygen levels and was placed on oxime mask by nursing staff with improvement. At bedside patient now has bilateral rails, tachypnea, and increased work of breathing. She does still complain of pain. IV morphine, IV Lasix, repeat chest x-ray and EKG added. Diagnostics Interpreted By Me: -ECG: nsr at 78, nml axis, nml intervals, ST elevation in I, aVL, aVR with ST depression in inferior and precordial leads ECG 2: nsr at 67, nml axis, nml intervals, previously seen ST abnormalities improved although not completely normal -Cardiac Monitoring: An order was placed for continuous cardiac monitoring. The monitor shows a rate of 72 with normal sinus rhythm. -Laboratory studies: As stated above and show below. -Imaging studies: X-ray Chest: A single view study of the chest was reviewed and was negative for cardiomegaly, focal infiltrate, effusion, or wide mediastinum. Slight appearance of b/l interstitial edema compared to prior. Triage Nursing Note Reviewed Prior/Outside Records Reviewed - DC summary from 01/10/24 Critical Care: Critical care of 40 min performed to assess and manage high likelihood of life- threatening ACS, involving labs and imaging performed with assessment to evaluate chest pain diagnosis with frequent reassessment. This time includes bedside time, treatment discussions with patient/family/consultants, documentation time and excludes procedure time. Past Med/Surg History Problem List (Updated 01/13/24 @ 06:02 by Deirdre Morales DO) CHF (congestive heart failure) (Acute) ACS (acute coronary syndrome) (Acute) Palliative care by specialist Discussion about advance care planning held with family member Weakness generalized Dyspnea and respiratory abnormalities Acute heart failure Non-ST elevation AR (NSTEMI) (Acute) Chest pain (Acute) Medical History (Updated 01/13/24 @ 06:02 by Deirdre Morales DO) Mood disorder Dementia Acquired hypothyroidism Dyslipidemia CKD (chronic kidney disease), stage III HTN (hypertension) Atrial fibrillation Recurrent deep vein thrombosis (DVT) Surgical History (Updated 01/09/24 @ 18:53 by Claudia Cerna PA-C) No pertinent past surgical history Family History Other Stroke Social History Smoking Status: Never smoker Hx Alcohol Use: No Hx Substance Use: No Preferred Language: Chinese Communication Ability: Unable Fur Designer Required: No Beliefs That Will Affect Care: None Current Living Situation: Spouse and Half-Way Current Living Situation Comment: [facility] Feels Safe at Home: Yes Assistive Devices: Walker Allergies Allergies Allergy/AdvReac Type Severity Reaction Status Date / Time No Known Allergies Allergy Verified 01/11/24 09:03 Home Meds Home Medications Medication Instructions Recorded Confirmed apixaban 2.5 mg tablet (Eliquis) 2.5 mg PO BID 01/09/24 01/11/24 cholecalciferol (vitamin D3) 25 25 mcg PO DAILY 01/09/24 01/11/24 mcg (1,000 unit) tablet (Vitamin D3) cyanocobalamin (vitamin B-12) 1,000 mcg PO DAILY 01/09/24 01/11/24 1,000 mcg tablet (Vitamin B-12) docusate sodium 50 mg capsule 250 mg PO HS 01/09/24 01/11/24 donepezil 5 mg tablet 2.5 mg PO QAM 01/09/24 01/11/24 levothyroxine 137 mcg tablet 137 mcg PO DAILYBB 01/09/24 01/11/24 melatonin 3 mg tablet 3 mg PO HS 01/09/24 01/11/24 metoprolol succinate 50 mg 50 mg PO HS 01/09/24 01/11/24 tablet,extended release 24 hr multivitamin 1 tab PO DAILY 01/09/24 01/11/24 omeprazole 20 mg capsule,delayed 20 mg PO QAM 01/09/24 01/11/24 release sertraline 50 mg tablet 50 mg PO QAM 01/09/24 01/11/24 simvastatin 20 mg tablet 20 mg PO HS 01/09/24 01/11/24 vitamins A,C,X-fyvy-ydhuyn 4,296 1 cap PO AMPM 01/09/24 01/11/24 mcg-226 mg-90 mg capsule (PreserVision AREDS) Previous Rx's Medication Instructions Recorded isosorbide mononitrate 30 mg 30 mg PO DAILY #30 tabs 01/10/24 tablet,extended release 24 hr Results & Data (ED) Vital Signs Vital Signs - 24 hr 01/11/24 01:57 01/11/24 01:57 01/11/24 01:59 Temperature 36.5 C Temperature Source Oral Pulse Rate 78 70 Pulse Rate [Apical] Pulse Rhythm Regular Pulse Rhythm [Apical] Pulse Strength Normal Respiratory Rate 18 Respiratory Effort / Characteristics Non-Labored Spontaneous Respiratory Depth Normal Respiratory Pattern Regular Blood Pressure 208/114 H Blood Pressure [Right Arm] Blood Pressure Mean 145 Blood Pressure Mean [Right Arm] Pulse Oximetry 92 90 Oxygen Delivery Method Room Air Room Air Oxygen Flow Rate Sepsis Recent Fever Within 48 Hours No Sepsis New/Unexplained Change in Mental Status No Sepsis Action Taken by Nursing No Action Required Oxygen Flow Rate - Titration 2 Pulse Oximetry Post Tiitration 96 01/11/24 03:00 Temperature Temperature Source Pulse Rate Pulse Rate [Apical] 80 Pulse Rhythm Pulse Rhythm [Apical] Regular Pulse Strength Respiratory Rate 22 Respiratory Effort / Characteristics Respiratory Depth Normal Respiratory Pattern Blood Pressure Blood Pressure [Right Arm] 168/116 H Blood Pressure Mean Blood Pressure Mean [Right Arm] 133 Pulse Oximetry 92 Oxygen Delivery Method Nasal Cannula Oxygen Flow Rate 4 Sepsis Recent Fever Within 48 Hours Sepsis New/Unexplained Change in Mental Status Sepsis Action Taken by Nursing Oxygen Flow Rate - Titration Pulse Oximetry Post Tiitration Laboratory Data 01/12/24 07:11 01/12/24 08:20 Lab Results 01/11/24 Range/Units 01:54 WBC 11.69 H (4.8-10.8) K/ul RBC 4.57 (4.20-5.40) M/uL Hgb 13.4 (12.0-16.0) g/dl Hct 41.0 (37.0-47.0) % MCV 89.7 (80.0-100.0) fL MCH 29.3 (25.0-34.0) pg MCHC 32.7 (32.0-36.0) g/dL RDW Std Deviation 45.9 (36.4-46.3) fL RDW Coeff of Marcos 14.0 (11.5-14.5) % Plt Count 201 (130-400) K/uL MPV 9.0 L (9.4-12.4) fL Immature Gran % (Auto) 0.5 % Neut % (Auto) 69.1 % Lymph % (Auto) 20.2 % [place] % (Auto) 9.4 % Eos % (Auto) 0.5 % Baso % (Auto) 0.3 % Neut # (Auto) 8.07 H (1.40-6.50) K/uL Lymph # (Auto) 2.36 (1.20-3.40) K/uL [place] # (Auto) 1.10 H (0.11-0.59) K/uL Eos # (Auto) 0.06 (0.00-0.50) K/uL Baso # (Auto) 0.04 (0.00-0.20) K/uL Immature Gran # (Auto) 0.06 (0.01-0.20) K/uL PT 10.8 (9.0-12.0) Seconds INR 1.0 (0.9-1.1) Sodium 135 L (136-145) mmol/L Potassium 4.1 (3.5-5.1) mmol/L Chloride 100 (98-107) mmol/L Carbon Dioxide 23 (21-32) mmol/L Anion Gap 12 H (3-11) BUN 20 (6-23) mg/dl Creatinine 1.63 H D (0.6-1.2) mg/dl Est Cr Clr Drug Dosing Not Reportable Est GFR ( Amer) 32.0 ml/min Est GFR (Non-Af Amer) 27.6 ml/min BUN/Creatinine Ratio 12.3 (10-20) Glucose 168 H (70-99(Fasting)) mg/dl Calcium 9.6 (8.6-10.3) mg/dl Magnesium 2.0 (1.7-2.4) mg/dl Total Bilirubin 0.3 (0.2-1.0) mg/dl AST 42 H (13-39) U/L ALT 27 (7-52) U/L Alkaline Phosphatase 108 H (34-104) U/L Troponin I High Sens 1151.4 H* D (0-14) pg/ml Total Protein 7.4 (6.0-8.3) gm/dl Albumin 4.5 (3.4-5.0) gm/dl Globulin 2.9 (2.5-4.0) gm/dl Albumin/Globulin Ratio 1.6 (0.9-2) Lipase 24 (11-82) U/L Administered Medications Discontinued Medications Albuterol (Albut/Ipratrop 3mg/0.5mg Neb 3 Ml Vial) 3 ml NEB NOW STA; Protocol Stop: 01/11/24 04:43 Last Admin: 01/11/24 05:11 Dose: 3 ml Documented By: HB Aspirin (Aspirin 81 Mg Ectab) [facility] [place] Stop: 02/10/24 18:29 Last Admin: 01/12/24 07:44 Dose: 81 mg Documented By: Admin: 01/11/24 20:35 Dose: 81 mg Documented By: PARK WORKER SUPERVISOR Docusate Sodium (Docusate Sodium 100 Mg Cap) 200 mg PO HS [facility] Stop: 02/10/24 20:59 Last Admin: 01/11/24 20:35 Dose: 200 mg Documented By: PARK WORKER SUPERVISOR Donepezil HCl (Donepezil Hcl 5 Mg Tab) [facility] [place] Stop: 02/10/24 08:59 Last Admin: 01/12/24 07:41 Dose: 2.5 mg Documented By: Admin: 01/11/24 08:18 Dose: 2.5 mg Documented By: DEYSI Furosemide (Furosemide Inj 20 Mg/2 Ml Vial) 20 mg IV ONE ONE Stop: 01/11/24 03:48 Last Admin: 01/11/24 03:50 Dose: 20 mg Documented By: LIZBETH Furosemide (Furosemide Inj 20 Mg/2 Ml Vial) 20 mg IV ONE ONE Stop: 01/11/24 05:32 Last Admin: 01/11/24 06:44 Dose: 20 mg Documented By: ROSALINDA Heparin Sodium/Dextrose (Heparin Iv Adult Wt-Based Low-Dose *No* Initial Bolus Protocol) 1 each IV ONE STA; Protocol Stop: 01/11/24 17:34 Last Admin: 01/11/24 18:33 Dose: Not Given Documented By: OLESYA Sodium Chloride (Nss) 1,000 mls @ 125 mls/hr IV .Q8H RAFFAELE Stop: 02/10/24 01:59 Last Infusion: 01/11/24 09:00 Dose: Infused Documented By: Admin: 01/11/24 02:22 Dose: 125 mls/hr Documented By: HB Famotidine (Pepcid 20mg Iv Push) 20 mg in 5 mls @ 2.5 mls/min IV NOW STA Stop: 01/11/24 01:59 Last Admin: 01/11/24 02:22 Dose: 2.5 mls/min Documented By: HB Acetaminophen (Ofirmev) 1,000 mg in 100 mls @ 400 mls/hr IV NOW STA Stop: 01/11/24 02:12 Last Infusion: 01/11/24 02:40 Dose: Infused Documented By: Admin: 01/11/24 02:24 Dose: 400 mls/hr Documented By: HB Heparin Sodium/Dextrose (Heparin Sodium/Dextrose) 25,000 units in 500 mls @ 13 mls/hr IV .Q24H RAFFAELE; Protocol Stop: 02/10/24 17:59 Last Titration: 01/12/24 17:45 Dose: Infused Documented By: OLESYA Co-signed By: DTT Titration: 01/12/24 01:51 Dose: 650 units/hr, 13 mls/hr Documented By: PARK WORKER SUPERVISOR Co-signed By: REBECCA Titration: 01/11/24 19:01 Dose: 650 units/hr, 13 mls/hr Documented By: PARK WORKER SUPERVISOR Co-signed By: OLESYA Admin: 01/11/24 18:30 Dose: 650 units/hr, 13 mls/hr Documented By: OLESYA Co-signed By: LIZ Isosorbide Mononitrate (Isosorbide [place] Extended Rel 30 Mg Tabcr) 30 mg PO DAILY RAFFAELE Stop: 02/10/24 08:59 Last Admin: 01/12/24 07:49 Dose: 30 mg Documented By: Admin: 01/11/24 08:17 Dose: 30 mg Documented By: DEYSI Levothyroxine Sodium (Levothyroxine Sodium 137 Mcg Tablet) [facility]: 02/11/24 06:29 Last Admin: 01/12/24 07:40 Dose: 137 mcg Documented By: OLESYA Melatonin (Melatonin 3 Mg Tab) 3 mg PO [facility] Stop: 02/10/24 20:59 Last Admin: 01/11/24 20:35 Dose: 3 mg Documented By: GABRIEL Metoprolol Succinate (Metoprolol Succ 50mg Ext Rel Tab) 50 mg PO [facility] Stop: 02/10/24 20:59 Last Admin: 01/11/24 20:36 Dose: 50 mg Documented By: GABRIEL Metoprolol Tartrate (Metoprolol Tartrate 1 Mg/Ml Vial) 2.5 mg IV NOW STA Stop: 01/11/24 03:57 Last Admin: 01/11/24 04:40 Dose: 2.5 mg Documented By: LIZBETH Gonzalezaneous (Order Awaiting Action: Preservision) 1 each N/A QS [facility] Stop: 02/10/24 07:59 Last Admin: 01/12/24 07:09 Dose: Not Given Documented By: Admin: 01/12/24 01:10 Dose: Not Given Documented By: Admin: 01/11/24 15:42 Dose: Not Given Documented By: Admin: 01/11/24 15:42 Dose: Not Given Documented By: OLESYA Miscellaneous (Patient's Height &/Or Weight Needed) 1 each N/A NOW [facility] Stop: 01/11/24 17:35 Last Admin: 01/11/24 18:33 Dose: Not Given Documented By: OLESYA Morphine Sulfate (Morphine Sulfate 2 Mg/Ml Carp) 2 mg IV NOW STA Stop: 01/11/24 03:42 Last Admin: 01/11/24 03:46 Dose: 2 mg Documented By: LIZBETH Morphine Sulfate (Morphine Sulfate 2 Mg/Ml Carp) 2 mg IV NOW STA Stop: 01/11/24 03:58 Last Admin: 01/11/24 06:36 Dose: Not Given Documented By: LIZBETH Multivitamins (Multivitamin Tab) 1 tab PO [facility] Stop: 02/10/24 08:59 Last Admin: 01/12/24 07:42 Dose: 1 tab Documented By: Admin: 01/11/24 08:18 Dose: 1 tab Documented By: DEYSI Nitroglycerin (Nitroglycerin 2% Ointment 30gm Tube) 1 inch EXT NOW STA Stop: 01/11/24 01:59 Last Admin: 01/11/24 02:24 Dose: 1 inch Documented By: LIZBETH Pantoprazole Sodium (Pantoprazole 40 Mg Tab) 40 mg PO [facility]; Protocol Stop: 02/10/24 08:59 Last Admin: 01/12/24 07:45 Dose: 40 mg Documented By: Admin: 01/11/24 08:17 Dose: 40 mg Documented By: DEYSI Sertraline HCl (Sertraline Hcl 50 Mg Tablet) 50 mg PO [facility] Stop: 02/10/24 08:59 Last Admin: 01/12/24 07:44 Dose: 50 mg Documented By: Admin: 01/11/24 08:18 Dose: 50 mg Documented By: DEYSI Simvastatin (Simvastatin 20 Mg Tab) 20 mg PO HS [facility] Stop: 02/10/24 20:59 Last Admin: 01/11/24 20:36 Dose: 20 mg Documented By: GABRIEL Vitamin D (Cholecalciferol 25 Mcg (1000 Units) Tab) 25 mcg PO DAILY [facility] Stop: 02/10/24 08:59 Last Admin: 01/12/24 07:44 Dose: 25 mcg Documented By: Admin: 01/11/24 08:18 Dose: 25 mcg Documented By: DEYSI Discharge Plan Visit Data Chief Complaint: Chest Pain Stated Complaint: CHEST PAIN ED Provider: Deirdre Morales Discharge Problem: Chest pain, ACS (acute coronary syndrome), CHF (congestive heart failure) Patient Disposition: Admitted As Inpatient Discharge Instructions Interventions: ED Discharge Assessment Last Done: 01/11/24 06:40
[2024-01-11] MEDS: FUROSEMIDE INJ 20 MG/2 ML VIAL IV ONE ×2 (03:50→06:44)
[2024-01-11] MEDS: METOPROLOL TARTRATE 1 MG/ML VIAL IV STA (04:40)
--- NOTE | 2024-01-11 04:42 | History & Physical Report ---
Date of Service January 11, 2024 Assessment & Plan (1) Acute heart failure: Plan: Recent admission for NSTEMI Hypertension, elevated secondary illness Troponin elevated secondary to illness in the setting of worsening kidney dysfunction A-fib/recurrent DVT on Eliquis Abdominal pain rule out bleeding from Eliquis Rx hyperlipidemia, on statin Rx prediabetes, hemoglobin A1c of 5.8 this month hypothyroidism, TSH elevated dementia, at baseline past tobacco abuse Admit to PCU Diuretic Rx Strict I/Os, daily weights, CHF education Cardiology consult Re: Chest pain, CHF (Patient known to Dr. Valente.) UA, CT abdomen pelvis re: abdominal pain Hold Eliquis until CT abdomen pelvis resulted DVT prophylaxis. Eliquis if no bleed on CT imaging DNR as per family Patient daughter requesting updates providers. Claudia Kirk, contact #[phone]. Text document was generated using [employer] recognition software. It may contain grammatical or spelling errors. Kindly contact undersigned for clarification of any documentation item in question. History of Present Illness Chief Complaint: Chest pain/abdominal pain Primary Care Provider: Dr. Narayanan History obtained from patient, family, and records. Limited history from patient secondary to dementia. Medical history significant for A-fib/recurrent DVT on Eliquis, hypertension, hyperlipidemia, CRI (baseline creatinine 1.3), prediabetes, hypothyroidism, dementia, mood disorder, past tobacco abuse. Recent confinement January 08, [id number] for NSTEMI. Patient family opted for medical management after discussing with cardiology. Patient discharged with Imdur prescription. Intermittent chest pain symptoms associated with SOB upon arrival at home. Achy abdominal pain without headache symptoms. Denies black/bloody stools. Compliant with medications. Minimal relief of chest pain with nitroglycerin tablet administration at home. SBP 200s upon arrival at the ER. NSS followed by Lasix administered at the ER. 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 Allergies Allergy/AdvReac Type Severity Reaction Status Date / Time No Known Allergies Allergy Verified 01/11/24 09:03 Home Medications Medication Instructions Recorded Confirmed Type apixaban 2.5 mg tablet (Eliquis) 2.5 mg PO BID 01/09/24 01/11/24 History cholecalciferol (vitamin D3) 25 25 mcg PO DAILY 01/09/24 01/11/24 History mcg (1,000 unit) tablet (Vitamin D3) cyanocobalamin (vitamin B-12) 1,000 mcg PO DAILY 01/09/24 01/11/24 History 1,000 mcg tablet (Vitamin B-12) docusate sodium 50 mg capsule 250 mg PO HS 01/09/24 01/11/24 History donepezil 5 mg tablet 2.5 mg PO QAM 01/09/24 01/11/24 History levothyroxine 137 mcg tablet 137 mcg PO DAILYBB 01/09/24 01/11/24 History melatonin 3 mg tablet 3 mg PO HS 01/09/24 01/11/24 History metoprolol succinate 50 mg 50 mg PO HS 01/09/24 01/11/24 History tablet,extended release 24 hr multivitamin 1 tab PO DAILY 01/09/24 01/11/24 History omeprazole 20 mg capsule,delayed 20 mg PO QAM 01/09/24 01/11/24 History release sertraline 50 mg tablet 50 mg PO QAM 01/09/24 01/11/24 History simvastatin 20 mg tablet 20 mg PO HS 01/09/24 01/11/24 History vitamins A,C,J-rxca-orlmzu 4,296 1 cap PO AMPM 01/09/24 01/11/24 History mcg-226 mg-90 mg capsule (PreserVision AREDS) isosorbide mononitrate 30 mg 30 mg PO DAILY #30 tabs 01/10/24 01/11/24 Rx tablet,extended release 24 hr Past Med/Surg History Problem List (Updated 01/11/24 @ 10:24 by Jabari Cardoza MD) Acute heart failure Non-ST elevation [place] (NSTEMI) (Acute) Chest pain (Acute) Medical History (Updated 01/11/24 @ 10:24 by Jabari Cardoza MD) Mood disorder Dementia Acquired hypothyroidism Dyslipidemia CKD (chronic kidney disease), stage III HTN (hypertension) Atrial fibrillation Recurrent deep vein thrombosis (DVT) Surgical History (Updated 01/09/24 @ 18:53 by Claudia Cerna PA-C) No pertinent past surgical history Family History Other Stroke Social History Smoking Status: Unknown if ever smoked Hx Alcohol Use: No Hx Substance Use: No Preferred Language: Bengali Communication Ability: Impaired Senior Clinical Data Coordinator Required: No Beliefs That Will Affect Care: None Current Living Situation: Spouse and Personal Care Facility Current Living Situation Comment: [facility] Feels Safe at Home: Yes Assistive Devices: Walker Review of Systems Review of Systems: Could not be reliably obtained secondary to dementia Physical Exam Physical Exam: GENERAL: Demented, audible expiratory wheezes SKIN: Normal color, warm HEENT: [place] palpebral conjunctivae, no ptosis, dry buccal mucosa, O2 mask in place NECK : Supple, no tenderness CHEST : Decreased breath sounds, expiratory wheezes, no tenderness HEART : RRR, no obvious murmurs ABDOMEN: Some distention, nontender EXTREMITIES : Minimal LE swelling, no LE tenderness, no other conspicuous deformities noted NEUROLOGIC : Demented, no facial asymmetry, gait and stance not assessed Results & Data Results & Data Vital Signs (Past 12 Hours) Vital Signs Temp Pulse Pulse Resp BP BP Pulse Ox 01/11/24 03:00 80 22 168/116 H 92 01/11/24 01:59 70 01/11/24 01:57 90 01/11/24 01:57 36.5 C 78 18 208/114 H 92 O2 Del Method O2 Flow Rate 01/11/24 03:00 Nasal Cannula 4 01/11/24 01:59 01/11/24 01:57 Room Air 01/11/24 01:57 Room Air Laboratory Results Laboratory Results WBC 11.69 K/ul (4.8-10.8) H 01/11/24 01:54 RBC 4.57 M/uL (4.20-5.40) 01/11/24 01:54 Hgb 13.4 g/dl (12.0-16.0) 01/11/24 01:54 Hct 41.0 % (37.0-47.0) 01/11/24 01:54 MCV 89.7 fL (80.0-100.0) 01/11/24 01:54 MCH 29.3 pg (25.0-34.0) 01/11/24 01:54 MCHC 32.7 g/dL (32.0-36.0) 01/11/24 01:54 RDW Std Deviation 45.9 fL (36.4-46.3) 01/11/24 01:54 RDW Coeff of Marcos 14.0 % (11.5-14.5) 01/11/24 01:54 Plt Count 201 K/uL (130-400) 01/11/24 01:54 MPV 9.0 fL (9.4-12.4) L 01/11/24 01:54 Immature Gran % (Auto) 0.5 % 01/11/24 01:54 Neut % (Auto) 69.1 % 01/11/24 01:54 Lymph % (Auto) 20.2 % 01/11/24 01:54 [place] % (Auto) 9.4 % 01/11/24 01:54 Eos % (Auto) 0.5 % 01/11/24 01:54 Baso % (Auto) 0.3 % 01/11/24 01:54 Neut # (Auto) 8.07 K/uL (1.40-6.50) H 01/11/24 01:54 Lymph # (Auto) 2.36 K/uL (1.20-3.40) 01/11/24 01:54 [place] # (Auto) 1.10 K/uL (0.11-0.59) H 01/11/24 01:54 Eos # (Auto) 0.06 K/uL (0.00-0.50) 01/11/24 01:54 Baso # (Auto) 0.04 K/uL (0.00-0.20) 01/11/24 01:54 Immature Gran # (Auto) 0.06 K/uL (0.01-0.20) 01/11/24 01:54 PT 10.8 Seconds (9.0-12.0) 01/11/24 01:54 INR 1.0 (0.9-1.1) 01/11/24 01:54 Sodium 135 mmol/L (136-145) L 01/11/24 01:54 Potassium 4.1 mmol/L (3.5-5.1) 01/11/24 01:54 Chloride 100 mmol/L (98-107) 01/11/24 01:54 Carbon Dioxide 23 mmol/L (21-32) 01/11/24 01:54 Anion Gap 12 (3-11) H 01/11/24 01:54 BUN 20 mg/dl (6-23) 01/11/24 01:54 Creatinine 1.63 mg/dl (0.6-1.2) H D 01/11/24 01:54 Est Cr Clr Drug Dosing Not Reportable 01/11/24 01:54 Est GFR ( Amer) 32.0 ml/min 01/11/24 01:54 Est GFR (Non-Af Amer) 27.6 ml/min 01/11/24 01:54 BUN/Creatinine Ratio 12.3 (10-20) 01/11/24 01:54 Glucose 168 mg/dl (70-99(Fasting)) H 01/11/24 01:54 Calcium 9.6 mg/dl (8.6-10.3) 01/11/24 01:54 Magnesium 2.0 mg/dl (1.7-2.4) 01/11/24 01:54 Total Bilirubin 0.3 mg/dl (0.2-1.0) 01/11/24 01:54 AST 42 U/L (13-39) H 01/11/24 01:54 ALT 27 U/L (7-52) 01/11/24 01:54 Alkaline Phosphatase 108 U/L (34-104) H 01/11/24 01:54 Troponin I High Sens 1151.4 pg/ml (0-14) H* D 01/11/24 01:54 Total Protein 7.4 gm/dl (6.0-8.3) 01/11/24 01:54 Albumin 4.5 gm/dl (3.4-5.0) 01/11/24 01:54 Globulin 2.9 gm/dl (2.5-4.0) 01/11/24 01:54 Albumin/Globulin Ratio 1.6 (0.9-2) 01/11/24 01:54 Lipase 24 U/L (11-82) 01/11/24 01:54 Diagnostic Findings Chest x-ray as per my interpretation congestion and pleural effusions EKG as per my interpretation :Rate 80, NSR, normal axis, ST depression inferior and anterolateral leads
[2024-01-11] MEDS ORDERED: traMADol HCL 50 MG TABLET PO PRN (04:45)
[2024-01-11] MEDS ORDERED: ACETAMINOPHEN 325 MG TAB PO PRN (04:45)
[2024-01-11] MEDS ORDERED: PROMETHAZINE 6.25 MG/50.25 ML BAG IV PRN (04:45)
[2024-01-11] MEDS ORDERED: HYDROmorphone INJ 0.5 MG/0.5 ML SYR IV PRN (04:45)
[2024-01-11] MEDS ORDERED: NITROGLYCERIN SL 0.4 MG/TAB TAB SL PRN (04:47)
[2024-01-11] MEDS: ALBUT/IPRATROP 3MG/0.5MG NEB 3 ML VIAL NEB STA (05:11)
[2024-01-11 06:23] LABS: Base Excess VBG -2.2 mEq/L; HCO3 VBG 24 mmol/L; Oxygen Saturation VBG 81.3 %; PCO2 VBG 44 mmHg (38-50); PO2 VBG 49 mmHg; pH VBG 7.34 (7.36-7.41)
--- NOTE | 2024-01-11 06:54 | XRay Report ---
XR chest 1V portable CLINICAL HISTORY: Increasing shortness of breath. COMPARISON STUDY: Chest radiograph January 11, 2024 at 2:19 AM. FINDINGS: There is no pneumothorax. There are trace bilateral pleural effusions. Interstitial thicken ing has progressed. No definite consolidation to suggest pneumonia. Cardiomediastinal silhouette is s table. Old left humeral neck fracture is incidentally noted. IMPRESSION: 1. Progression of moderate interstitial pulmonary edema. 2. Trace bilateral pleural effusions. ACT 112: Negative or not required by law. Electronically signed by: Diego Andino M.D. 01/11/2024 6:52 AM
--- NOTE | 2024-01-11 06:56 | XRay Report ---
KUB CLINICAL HISTORY: Abdominal pain. COMPARISON STUDY: None. FINDINGS: There is no radiographic evidence for a bowel obstruction. Multiple oval radiodensities wit hin the right lower quadrant measure 1.2 cm. These may reflect ingested tablets within the cecum. The amount of stool is within normal limits. There is no evidence for free air on supine exam. IMPRESSION: No evidence for a bowel obstruction. ACT 112: Negative or not required by law. Electronically signed by: Diego Andino M.D. 01/11/2024 6:55 AM
--- NOTE | 2024-01-11 07:29 | XRay Report ---
XR chest 1V portable HISTORY: Atypical chest pain COMPARISON: Chest 01/09/2024 FINDINGS: Interval progression of the mild interstitial pulmonary edema and trace bilateral pleural e ffusions. The heart remains mildly enlarged. No pneumothorax. Old left humeral neck fracture again no elias. IMPRESSION: Interval progression of the mild interstitial pulmonary edema and trace bilateral pleural effusions. ACT 112: Negative or not required by law. Electronically signed by: Pato Finley M.D. 01/11/2024 7:27 AM
[2024-01-11 08:04] LABS: Hematocrit (blood only) 47.4 % (37.0-47.0); Hemoglobin 15.6 g/dl (12.0-16.0)
[2024-01-11] MEDS: ISOSORBIDE MONO EXTENDED REL 30 MG TABCR PO SCH (08:17)
[2024-01-11] MEDS: PANTOprazole 40 MG TAB PO SCH (08:17)
[2024-01-11] MEDS: DONEPEZIL HCL 5 MG TAB PO SCH (08:18)
[2024-01-11] MEDS: SERTRALINE HCL 50 MG TABLET PO SCH (08:18)
[2024-01-11] MEDS: MULTIVITAMIN TAB PO SCH (08:18)
[2024-01-11] MEDS: CHOLECALCIFEROL 25 MCG (1000 UNITS) TAB PO SCH (08:18)
--- NOTE | 2024-01-11 13:59 | Communication Note ---
Date of Service: January 11, 2024 Pt was seen with family and Cardiology at bedside. Was alert, pleasantly confused, no acute distress at the time of exam, holding oxymask in her hand and breathing comfortably. Further discussion with Cardiology, recommending continued medical management with IV heparin while holding home Eliquis, aspirin and re-starting Imdur in the AM. Further discussion with pt's daughter and TOMMY Gauthier (former RN) who is in agreement with palliative care consult. Palliative Care consult order placed. Per Liya she can be reached at [phone] if needed. Continue telemetry monitoring. For full plan of care, please see History and Physical from same date of service.
[2024-01-11 17:15] LABS: Appearance Urine Clear (Clear); Bacteria Urine Automated None Seen (None Seen); Bilirubin Urine Negative (Negative); Blood Urine Trace (Negative); Color Urine Yellow; Epithelial Cell Urine Auto 0-2 /hpf (0-2); Glucose Urine UA Negative (Negative); Hyaline Casts Urine Present /lpf (None Presnt); Ketones Urine Negative (Negative); Leukocyte Esterase Urine Negative (Negative); Nitrite Urine Negative (Negative); Protein Urine 1+ (Negative); RBC Urine Automated 0-2 /hpf (0-2); Specific Gravity Urine 1.012 (1.000-1.030); Urobilinogen Urine Negative (Negative); WBC Urine Automated 0-5 /hpf (0-5); pH Urine 5.5 (4.5-7.5)
--- NOTE | 2024-01-11 18:25 | Cardiology Consultation ---
Date of Consultation January 11, 2024 Assessment & Plan (1) Non-ST elevation [place] (NSTEMI): 2. Dementia 3. HFpEF 4. 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 Paroxysmal atrial fibrillation 6. Acute on chronic renal insufficiency Patient here with recurrent episode of chest pain, dyspnea soon after discharge post recent ACS event. With worsening pain in ED had ventricular ectopy and dynamic ST changes including subtle lateral ST elevation and anterior ST depression. Echo today shows new, pronounced inferolateral wall motion abnormality from yesterday. Suspect unstable disease in circumflex distribution vessel, possibly subtotally occluded while in ED. fortunately patient's breathing is improved and has been chest pain-free throughout the day. Overall LV function remains near normal on echo and no significant residual congestion on exam. Situation again discussed with patient's family (daughter, son, ). With her dementia family again prefers more conservative approach to management and agree with this approach. Cardiac cath/PCI would not change long-term prognosis. Would only consider for relief of severe refractory pain. Recommend continue medical management and observation. Heparin infusion overnight. Hold home Eliquis Hold additional diuretics Trend troponin until peak. Repeat ECG Start aspirin. Consider replacing with clopidogrel Continue home Toprol-XL. On Nitropaste. Transition to Imdur tomorrow Agree with palliative care consult Will follow History of Present Illness Attending Physician: Siena Ly MD History of Present Illness Mrs. Davis is a very pleasant 88-year-old woman returning to ED earlier this morning in setting of recurrent chest pain and shortness of breath. Patient has dementia with significant short-term memory loss. She resides at [facility] with her . Past medical history remarkable for recurrent DVT on Eliquis, paroxysmal atrial fibrillation, GERD, hypertension, CKD, dyslipidemia and hypothyroidism. She was discharged yesterday after admitted with prolonged episode of chest/left side pain. Found to have elevated HS TropI she peaked at 2600 before downtrending. ECG unremarkable. Echo showed questionable posterior hypokinesis. Patient's family favored conservative approach to management of her ACS. As was chest pain-free and with concerns for worsening mental status with prolonged hospital stay discharged yesterday evening around 5:30 PM with plan for new Imdur and cardiology follow-up with Dr. Oseguera. Around 11:30 PM last night had recurrent severe chest pain and shortness of breath leading her back to the ED around 1:30 AM. Initial chest x-ray suggestive of congestion and treated with IV Lasix. Initial ECGs with inferior ST and V3 through V5 ST depressions. Subsequent ECG around 4 AM showed frequent PVCs, more pronounced ST depressions inferiorly and in V1 through V4 with subtle ST elevation in 1 aVL and V6. Patient had resolution of pain with Dilaudid and has been chest pain-free the remainder of the day. Currently no complaints. Repeat echo today shows preserved LV function but now severe base to mid lateral and posterior hypokinesis. HS TropI still downtrending. Allergies Allergy/AdvReac Type Severity Reaction Status Date / Time No Known Allergies Allergy Verified 01/11/24 09:03 Home Medications Medication Instructions Recorded Confirmed Type apixaban 2.5 mg tablet (Eliquis) 2.5 mg PO BID 01/09/24 01/11/24 History cholecalciferol (vitamin D3) 25 25 mcg PO DAILY 01/09/24 01/11/24 History mcg (1,000 unit) tablet (Vitamin D3) cyanocobalamin (vitamin B-12) 1,000 mcg PO DAILY 01/09/24 01/11/24 History 1,000 mcg tablet (Vitamin B-12) docusate sodium 50 mg capsule 250 mg PO HS 01/09/24 01/11/24 History donepezil 5 mg tablet 2.5 mg PO QAM 01/09/24 01/11/24 History levothyroxine 137 mcg tablet 137 mcg PO DAILYBB 01/09/24 01/11/24 History melatonin 3 mg tablet 3 mg PO HS 01/09/24 01/11/24 History metoprolol succinate 50 mg 50 mg PO HS 01/09/24 01/11/24 History tablet,extended release 24 hr multivitamin 1 tab PO DAILY 01/09/24 01/11/24 History omeprazole 20 mg capsule,delayed 20 mg PO QAM 01/09/24 01/11/24 History release sertraline 50 mg tablet 50 mg PO QAM 01/09/24 01/11/24 History simvastatin 20 mg tablet 20 mg PO HS 01/09/24 01/11/24 History vitamins A,C,B-qeut-mgxota 4,296 1 cap PO AMPM 01/09/24 01/11/24 History mcg-226 mg-90 mg capsule (PreserVision AREDS) isosorbide mononitrate 30 mg 30 mg PO DAILY #30 tabs 01/10/24 01/11/24 Rx tablet,extended release 24 hr Patient History Medical History (Updated 01/11/24 @ 10:24 by Jabari Cardoza MD) Mood disorder Dementia Acquired hypothyroidism Dyslipidemia CKD (chronic kidney disease), stage III HTN (hypertension) Atrial fibrillation Recurrent deep vein thrombosis (DVT) Surgical History (Updated 01/09/24 @ 18:53 by Claudia Cerna PA-C) No pertinent past surgical history Family History Other Stroke Social History Smoking Status: Never smoker Hx Alcohol Use: No Hx Substance Use: No Preferred Language: Romanian Communication Ability: Impaired Research Assistant Member Required: No Beliefs That Will Affect Care: None Current Living Situation: Spouse and [facility] Current Living Situation Comment: [facility] Other Information That Helps Us Care for You: No Feels Safe at Home: Yes Assistive Devices: Oxygen - Continuous and Walker Review of Systems Review of Systems: All systems reviewed & are unremarkable except as noted in HPI & below Physical Exam Physical Exam: General: Sleeping comfortably HEENT: Sclerae anicteric Lungs: Clear to auscultation bilaterally, few crackles cleared with inspiration. Cardiac: Regular rate and rhythm, no murmurs. No JVD Vascular: 2+ radial Abdomen: Soft, nontender Extremities: Well perfused, no peripheral edema Neuro: Nonfocal Results & Data Vital Signs (Past 12 Hours) Vital Signs Temp Pulse Pulse Resp BP BP Pulse Ox 01/11/24 16:28 98 01/11/24 16:21 97.3 F L 69 16 158/92 H 98 01/11/24 16:20 98 01/11/24 15:57 71 01/11/24 15:54 01/11/24 14:42 97.9 F 65 16 148/102 H 96 01/11/24 13:45 63 23 98 01/11/24 13:39 67 15 98 01/11/24 13:12 69 24 95 01/11/24 13:00 65 15 98 01/11/24 12:51 65 18 98 01/11/24 12:30 68 18 99 01/11/24 12:21 64 15 98 01/11/24 12:18 65 15 98 01/11/24 12:06 65 16 98 01/11/24 12:00 63 15 163/108 H 96 01/11/24 11:51 65 16 97 01/11/24 11:31 168/109 H 01/11/24 11:31 168/109 H 01/11/24 11:30 71 13 98 01/11/24 11:12 65 16 98 01/11/24 11:00 68 15 97 01/11/24 10:54 67 19 98 01/11/24 10:42 66 17 98 01/11/24 10:33 66 15 98 01/11/24 10:24 66 16 98 01/11/24 10:12 68 17 97 01/11/24 10:03 68 17 97 01/11/24 09:48 67 17 98 01/11/24 09:30 67 14 98 01/11/24 09:21 68 19 98 01/11/24 09:12 69 17 98 01/11/24 09:00 67 16 97 01/11/24 08:52 69 17 96 01/11/24 08:42 67 17 95 01/11/24 08:33 78 10 L 01/11/24 08:12 73 17 96 01/11/24 08:00 74 18 95 01/11/24 07:45 74 18 96 01/11/24 07:18 70 18 96 01/11/24 07:09 72 20 94 01/11/24 07:05 73 01/11/24 06:18 72 21 90 01/11/24 06:06 69 19 93 O2 Del Method O2 Flow Rate 01/11/24 16:28 Room Air 4 01/11/24 16:21 Oxymask 4 01/11/24 16:20 Oxymask 9 01/11/24 15:57 01/11/24 15:54 Oxymask 9 01/11/24 14:42 Oxymask 01/11/24 13:45 Oxymask 01/11/24 13:39 01/11/24 13:12 01/11/24 13:00 01/11/24 12:51 01/11/24 12:30 01/11/24 12:21 01/11/24 12:18 01/11/24 12:06 01/11/24 12:00 Oxymask 01/11/24 11:51 01/11/24 11:31 01/11/24 11:31 01/11/24 11:30 01/11/24 11:12 01/11/24 11:00 01/11/24 10:54 01/11/24 10:42 01/11/24 10:33 01/11/24 10:24 01/11/24 10:12 01/11/24 10:03 01/11/24 09:48 01/11/24 09:30 01/11/24 09:21 01/11/24 09:12 01/11/24 09:00 01/11/24 08:52 Oxymask 01/11/24 08:42 01/11/24 08:33 01/11/24 08:12 01/11/24 08:00 01/11/24 07:45 01/11/24 07:18 01/11/24 07:09 01/11/24 07:05 01/11/24 06:18 01/11/24 06:06 PG Care Time/CCT Total # of Minutes Spent Total Time Spent with Patient: Total time spent is greater than 50% in coordination of care (as documented) at patient's floor/unit and/or counseling patient: Coding Level of Care Code 23915 INT INP/OBS CARE 3/75MIN Diagnoses Non-ST elevation [place] (NSTEMI) I21.4
[2024-01-11] MEDS: HEPARIN SODIUM/DEXTROSE 25,000 UNITS/500 ML BAG IV SCH (18:30)
[2024-01-11] MEDS: Patient's HEIGHT &/or WEIGHT Needed STA (18:33)
[2024-01-11] MEDS: Heparin IV Adult Wt-Based Low-Dose *NO* INITIAL Bolus Protocol IV STA (18:33)
--- NOTE | 2024-01-11 19:03 | XCELERA ---
[id number] \\[id number]
[2024-01-11] MEDS: DOCUSATE SODIUM 100 MG CAP PO SCH (20:35)
[2024-01-11] MEDS: MELATONIN 3 MG TAB PO SCH (20:35)
[2024-01-11] MEDS: ASPIRIN 81 MG ECTAB PO SCH (20:35)
[2024-01-11] MEDS: METOPROLOL SUCC 50MG EXT REL TAB PO SCH (20:36)
[2024-01-11] MEDS: SIMVASTATIN 20 MG TAB PO SCH (20:36)
[2024-01-12] MEDS: LEVOTHYROXINE SODIUM 137 MCG TABLET PO SCH (07:40)
[2024-01-12 07:45] LABS: Basophils # (auto) 0.04 K/uL (0.00-0.20); Basophils % (auto) 0.2 %; Hematocrit (blood only) 42.8 % (37.0-47.0); Immature Granulocytes # (auto) 0.12 K/uL (0.01-0.20); Immature Granulocytes % (auto) 0.7 %; Lymphocytes # (auto) 1.17 K/uL (1.20-3.40); Lymphocytes % (auto) 6.5 %; Mean Corpuscular Hemoglobin 29.3 pg (25.0-34.0); Mean Corpuscular Hgb Conc 32.7 g/dL (32.0-36.0); Mean Corpuscular Volume 89.5 fL (80.0-100.0); Mean Platelet Volume 9.5 fL (9.4-12.4); Monocytes # (auto) 1.93 K/uL (0.11-0.59); Monocytes % (auto) 10.7 %; Neutrophils # (auto) 14.74 K/uL (1.40-6.50); Neutrophils % (auto) 81.9 %; Platelet Count 213 K/uL (130-400); RDW Coefficient of Variation 14.2 % (11.5-14.5); RDW Standard Deviation 45.6 fL (36.4-46.3); Red Blood Count 4.78 M/uL (4.20-5.40)
[2024-01-12 07:51] VITALS: RESP 18; TEMP 99; O2SAT 93
[2024-01-12 07:53] LABS: Calcium 8.8 mg/dl (8.6-10.3); Carbon Dioxide 24 mmol/L (21-32); Chloride 96 mmol/L (98-107)
[2024-01-12 07:59] LABS: BUN Creatinine Ratio 16.7 (10-20); Blood Urea Nitrogen 23 mg/dl (6-23); Creatinine Clr Calc Pharmacy 24.5 ml/min; Est GFR (African American) 39.2 ml/min; Est GFR (Non-African American) 33.8 ml/min; Glucose 172 mg/dl (70-99(Fasting))
[2024-01-12 08:16] LABS: Troponin I High Sensitivity 21985.7 pg/ml (0-14)
[2024-01-12 08:54] LABS: Magnesium 1.8 mg/dl (1.7-2.4)
--- NOTE | 2024-01-12 10:13 | Palliative Care Consultation ---
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 they are in agreement and would like [facility] and continue at [facility] primary team, care mgt, nursing all are pt is comfort care with plan for dc tomorrow back to [facility] with hospice. (4) Palliative care by specialist: Discussed Palliative Medicine provides specialized medical care for patients with a serious illness. We offer a focus on quality of life through reduction of symptom burden/more control over their illness, for patients and their family. Palliative Medicine interventions can be given along with curative treatment. I specifically clarified we are not hospice, which is a visiting nurse service that focuses on care delivered at the very end of life. Plan As above Thank you for allowing us to participate in the ongoing care of this patient. Please page with any additional concerns. Quincy Vieyra DNP Director, Palliative Medicine History of Present Illness Reason for Consultation: On 01/11/24 @ 16:06 Siena Ly Wrote To Tara Vieyra severe dementia, NSTEMI w conservative rx Attending Physician: Madeleine Hawkins MD History of Present Illness Elvira is here with recurrent episode of chest pain, dyspnea soon after discharge post recent ACS event. She resides at [facility] with her . She was discharged 01.10.24 following admission for prolonged episode of chest/left side pain. Found to have elevated HS TropI she peaked at 2600 before downtrending. ECG unremarkable. Echo showed questionable posterior hypokinesis. With worsening pain in ED had ventricular ectopy and dynamic ST changes including subtle lateral ST elevation and anterior ST depression. Echo today shows new, pronounced inferolateral wall motion abnormality from yesterday. PMH: 1. Non-ST elevation MO (NSTEMI) 2. Dementia 3. HFpEF 4. 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 Paroxysmal atrial fibrillation 6. Acute on chronic renal insufficiency Suspect unstable disease in circumflex distribution vessel, possibly subtotally occluded while in ED. fortunately patient's breathing is improved and has been chest pain-free throughout the day. Overall LV function remains near normal on echo and no significant residual congestion on exam. Situation again discussed with patient's family (daughter, son, ). With her dementia family again prefers more conservative approach to management and agree with this approach. Cardiac cath/PCI would not change long-term prognosis. Would only consider for relief of severe refractory pain. Jen is seen bedside with her family: , son, dtrs x2 She is forgetful but pleasant She is unable to consistently follow commands She denies acute pain She is not in apparent resp distress Family notes her chest pain signif improved with morphine troponin today > 21K Allergies Allergy/AdvReac Type Severity Reaction Status Date / Time No Known Allergies Allergy Verified 01/11/24 09:03 Home Medications Medication Instructions Recorded Confirmed Type apixaban 2.5 mg tablet (Eliquis) 2.5 mg PO BID 01/09/24 01/11/24 History cholecalciferol (vitamin D3) 25 25 mcg PO DAILY 01/09/24 01/11/24 History mcg (1,000 unit) tablet (Vitamin D3) cyanocobalamin (vitamin B-12) 1,000 mcg PO DAILY 01/09/24 01/11/24 History 1,000 mcg tablet (Vitamin B-12) docusate sodium 50 mg capsule 250 mg PO HS 01/09/24 01/11/24 History donepezil 5 mg tablet 2.5 mg PO QAM 01/09/24 01/11/24 History levothyroxine 137 mcg tablet 137 mcg PO DAILYBB 01/09/24 01/11/24 History melatonin 3 mg tablet 3 mg PO HS 01/09/24 01/11/24 History metoprolol succinate 50 mg 50 mg PO HS 01/09/24 01/11/24 History tablet,extended release 24 hr multivitamin 1 tab PO DAILY 01/09/24 01/11/24 History omeprazole 20 mg capsule,delayed 20 mg PO QAM 01/09/24 01/11/24 History release sertraline 50 mg tablet 50 mg PO QAM 01/09/24 01/11/24 History simvastatin 20 mg tablet 20 mg PO HS 01/09/24 01/11/24 History vitamins A,C,N-xxak-wcvyrf 4,296 1 cap PO AMPM 01/09/24 01/11/24 History mcg-226 mg-90 mg capsule (PreserVision AREDS) isosorbide mononitrate 30 mg 30 mg PO DAILY #30 tabs 01/10/24 01/11/24 Rx tablet,extended release 24 hr Patient History Medical History (Updated 01/12/24 @ 14:48 by Tara Vieyra DNP) Mood disorder Dementia Acquired hypothyroidism Dyslipidemia CKD (chronic kidney disease), stage III HTN (hypertension) Atrial fibrillation Recurrent deep vein thrombosis (DVT) Surgical History (Updated 01/09/24 @ 18:53 by Claudia Cerna PA-C) No pertinent past surgical history Family History Other Stroke Social History Smoking Status: Never smoker Hx Alcohol Use: No Hx Substance Use: No Preferred Language: Georgian Communication Ability: Impaired Mercury Recoverer Required: No Beliefs That Will Affect Care: None Current Living Situation: Spouse and Custodial Current Living Situation Comment: [facility] Other Information That Helps Us Care for You: No Feels Safe at Home: Yes Assistive Devices: Oxygen - Continuous and Walker Review of Systems Review of Systems: Unobtainable due to cognitive status Physical Exam Constitutional: + ill appearing, + thin and + frail appe aring Eyes: PERRL ENMT: dentition fair Neck: trachea midline, no thyromegaly Respiratory: normal respiratory effort and symmetric chest movement; does not use accessory muscles, no cough and no pursed lip breathing Auscultation: + diminished lung sounds and + crackles (faint basilar) Cardiovascular: s1s2, no gross JVD Gastrointestinal (Abdomen): soft, NTP, BS+ Musculoskeletal: gen weakness Skin: pale, cool, no gross cyanosis or clubbing nailbeds are pale Neurologic: alert to self confused to place or time unable to consistently follow commands 0/3 item recall Results & Data Vital Signs (Past 12 Hours) Vital Signs Temp Pulse Resp BP Pulse Ox O2 Del Method O2 Flow Rate 01/12/24 07:50 37.2 C 73 18 138/81 93 Room Air 01/12/24 02:46 36.6 C 73 16 147/84 H 95 Room Air 01/11/24 22:58 36.8 C 69 18 128/83 96 Nasal Cannula 2 Laboratory Results Cardiac Enzymes 01/12/24 Range/Units 07:11 Troponin I High Sens 04897.7 H* D (0-14) pg/ml CBC 01/12/24 Range/Units 07:11 WBC 18.00 H (4.8-10.8) K/ul RBC 4.78 (4.20-5.40) M/uL Hgb 14.0 (12.0-16.0) g/dl Hct 42.8 (37.0-47.0) % Plt Count 213 (130-400) K/uL Neut # (Auto) 14.74 H (1.40-6.50) K/uL Lymph # (Auto) 1.17 L (1.20-3.40) K/uL [place] # (Auto) 1.93 H (0.11-0.59) K/uL Eos # (Auto) 0.00 (0.00-0.50) K/uL Baso # (Auto) 0.04 (0.00-0.20) K/uL Comprehensive Metabolic Panel 01/12/24 01/12/24 Range/Units 07:11 08:20 Sodium TNP 132 L Potassium TNP 4.0 Chloride 96 L (98-107) mmol/L Carbon Dioxide 24 (21-32) mmol/L BUN 23 (6-23) mg/dl Creatinine 1.38 H (0.6-1.2) mg/dl Glucose 172 H (70-99(Fasting)) mg/dl Calcium 8.8 (8.6-10.3) mg/dl Intake and Output 01/11/24 01/12/24 01/12/24 22:59 06:59 14:59 Intake Total 126.717 / 515.550 88.833 / 515.550 0 / 0 Balance 126.717 / 515.550 88.833 / 515.550 0 / 0 Intake: IV 6.717 / 395.550 88.833 / 395.550 Heparin Sodium/Dextrose 25,000 6.717 / 95.550 88.833 / 95.550 units In 500 ml @ 650 UNITS/HR 13 mls/hr IV .Q24H RAFFAELE Rx#: [id number] Oral 120 / 120 0 / 0 Other: Other Intake Source sips # Unmeasured Voids 1 Weight 72 kg 72.1 kg 01/12/24 01/12/24 01/12/24 Range/Units 08:20 07:11 00:28 WBC 18.00 H (4.8-10.8) K/ul RBC 4.78 (4.20-5.40) M/uL Hgb 14.0 (12.0-16.0) g/dl Hct 42.8 (37.0-47.0) % MCV 89.5 (80.0-100.0) fL MCH 29.3 (25.0-34.0) pg MCHC 32.7 (32.0-36.0) g/dL RDW Std Deviation 45.6 (36.4-46.3) fL RDW Coeff of Marcos 14.2 (11.5-14.5) % Plt Count 213 (130-400) K/uL MPV 9.5 (9.4-12.4) fL Immature Gran % (Auto) 0.7 % Neut % (Auto) 81.9 % Lymph % (Auto) 6.5 % [place] % (Auto) 10.7 % Eos % (Auto) 0.0 % Baso % (Auto) 0.2 % Neut # (Auto) 14.74 H (1.40-6.50) K/uL Lymph # (Auto) 1.17 L (1.20-3.40) K/uL [place] # (Auto) 1.93 H (0.11-0.59) K/uL Eos # (Auto) 0.00 (0.00-0.50) K/uL Baso # (Auto) 0.04 (0.00-0.20) K/uL Immature Gran # (Auto) 0.12 (0.01-0.20) K/uL PT (9.0-12.0) Seconds INR (0.9-1.1) Heparin Anti-Xa, Unfract 0.60 (0.3-0.7) IU/ml VBG pH (7.36-7.41) VBG pCO2 (38-50) mmHg VBG pO2 mmHg VBG HCO3 mmol/L VBG O2 Saturation % VBG Base Excess mEq/L Sodium 132 L TNP (136-145) mmol/L Potassium 4.0 TNP (3.5-5.1) mmol/L Chloride 96 L (98-107) mmol/L Carbon Dioxide 24 (21-32) mmol/L Anion Gap TNP (3-11) BUN 23 (6-23) mg/dl Creatinine 1.38 H (0.6-1.2) mg/dl Est Cr Clr Drug Dosing 24.5 Est GFR ( Amer) 39.2 ml/min Est GFR (Non-Af Amer) 33.8 ml/min BUN/Creatinine Ratio 16.7 (10-20) Glucose 172 H (70-99(Fasting)) mg/dl Calcium 8.8 (8.6-10.3) mg/dl Phosphorus 2.0 L TNP Magnesium 1.8 TNP (1.7-2.4) mg/dl Total Bilirubin (0.2-1.0) mg/dl AST (13-39) U/L ALT (7-52) U/L Alkaline Phosphatase (34-104) U/L Troponin I High Sens 35846.7 H* D (0-14) pg/ml Total Protein (6.0-8.3) gm/dl Albumin (3.4-5.0) gm/dl Globulin (2.5-4.0) gm/dl Albumin/Globulin Ratio (0.9-2) Lipase (11-82) U/L Urine Color Urine Appearance (Clear) Urine pH (4.5-7.5) Ur Specific [place] (1.000-1.030) Urine Protein (Negative) Urine Glucose (UA) (Negative) Urine Ketones (Negative) Urine Blood (Negative) Urine Nitrite (Negative) Urine Bilirubin (Negative) Urine Urobilinogen (Negative) Ur Leukocyte Esterase (Negative) Urine WBC (Auto) (0-5) /hpf Urine RBC (Auto) (0-2) /hpf U Hyaline Cast (Auto) (0-2) /lpf U Epithel Cells (Auto) (0-2) /hpf Urine Bacteria (Auto) (None Seen) Hyaline Casts (None Presnt) /lpf 01/11/24 01/11/24 01/11/24 Range/Units Unknown 07:53 06:12 WBC (4.8-10.8) K/ul RBC (4.20-5.40) M/uL Hgb 15.6 (12.0-16.0) g/dl Hct 47.4 H (37.0-47.0) % MCV (80.0-100.0) fL MCH (25.0-34.0) pg MCHC (32.0-36.0) g/dL RDW Std Deviation (36.4-46.3) fL RDW Coeff of Marcos (11.5-14.5) % Plt Count (130-400) K/uL MPV (9.4-12.4) fL Immature Gran % (Auto) % Neut % (Auto) % Lymph % (Auto) % [place] % (Auto) % Eos % (Auto) % Baso % (Auto) % Neut # (Auto) (1.40-6.50) K/uL Lymph # (Auto) (1.20-3.40) K/uL [place] # (Auto) (0.11-0.59) K/uL Eos # (Auto) (0.00-0.50) K/uL Baso # (Auto) (0.00-0.20) K/uL Immature Gran # (Auto) (0.01-0.20) K/uL PT (9.0-12.0) Seconds INR (0.9-1.1) Heparin Anti-Xa, Unfract (0.3-0.7) IU/ml VBG pH 7.34 L (7.36-7.41) VBG pCO2 44 (38-50) mmHg VBG pO2 49 mmHg VBG HCO3 24 mmol/L VBG O2 Saturation 81.3 % VBG Base Excess -2.2 mEq/L Sodium (136-145) mmol/L Potassium (3.5-5.1) mmol/L Chloride (98-107) mmol/L Carbon Dioxide (21-32) mmol/L Anion Gap (3-11) BUN (6-23) mg/dl Creatinine (0.6-1.2) mg/dl Est Cr Clr Drug Dosing Est GFR ( Amer) ml/min Est GFR (Non-Af Amer) ml/min BUN/Creatinine Ratio (10-20) Glucose (70-99(Fasting)) mg/dl Calcium (8.6-10.3) mg/dl Phosphorus Magnesium (1.7-2.4) mg/dl Total Bilirubin (0.2-1.0) mg/dl AST (13-39) U/L ALT (7-52) U/L Alkaline Phosphatase (34-104) U/L Troponin I High Sens 1122.0 H* (0-14) pg/ml Total Protein (6.0-8.3) gm/dl Albumin (3.4-5.0) gm/dl Globulin (2.5-4.0) gm/dl Albumin/Globulin Ratio (0.9-2) Lipase (11-82) U/L Urine Color Yellow Urine Appearance Clear (Clear) Urine pH 5.5 (4.5-7.5) Ur Specific [place] 1.012 (1.000-1.030) Urine Protein 1+ H (Negative) Urine Glucose (UA) Negative (Negative) Urine Ketones Negative (Negative) Urine Blood Trace H (Negative) Urine Nitrite Negative (Negative) Urine Bilirubin Negative (Negative) Urine Urobilinogen Negative (Negative) Ur Leukocyte Esterase Negative (Negative) Urine WBC (Auto) 0-5 (0-5) /hpf Urine RBC (Auto) 0-2 (0-2) /hpf U Hyaline Cast (Auto) 6-10 H (0-2) /lpf U Epithel Cells (Auto) 0-2 (0-2) /hpf Urine Bacteria (Auto) None Seen (None Seen) Hyaline Casts Present A (None Presnt) /lpf 01/11/24 Range/Units 01:54 WBC 11.69 H (4.8-10.8) K/ul RBC 4.57 (4.20-5.40) M/uL Hgb 13.4 (12.0-16.0) g/dl Hct 41.0 (37.0-47.0) % MCV 89.7 (80.0-100.0) fL MCH 29.3 (25.0-34.0) pg MCHC 32.7 (32.0-36.0) g/dL RDW Std Deviation 45.9 (36.4-46.3) fL RDW Coeff of Marcos 14.0 (11.5-14.5) % Plt Count 201 (130-400) K/uL MPV 9.0 L (9.4-12.4) fL Immature Gran % (Auto) 0.5 % Neut % (Auto) 69.1 % Lymph % (Auto) 20.2 % [place] % (Auto) 9.4 % Eos % (Auto) 0.5 % Baso % (Auto) 0.3 % Neut # (Auto) 8.07 H (1.40-6.50) K/uL Lymph # (Auto) 2.36 (1.20-3.40) K/uL [place] # (Auto) 1.10 H (0.11-0.59) K/uL Eos # (Auto) 0.06 (0.00-0.50) K/uL Baso # (Auto) 0.04 (0.00-0.20) K/uL Immature Gran # (Auto) 0.06 (0.01-0.20) K/uL PT 10.8 (9.0-12.0) Seconds INR 1.0 (0.9-1.1) Heparin Anti-Xa, Unfract (0.3-0.7) IU/ml VBG pH (7.36-7.41) VBG pCO2 (38-50) mmHg VBG pO2 mmHg VBG HCO3 mmol/L VBG O2 Saturation % VBG Base Excess mEq/L Sodium 135 L (136-145) mmol/L Potassium 4.1 (3.5-5.1) mmol/L Chloride 100 (98-107) mmol/L Carbon Dioxide 23 (21-32) mmol/L Anion Gap 12 H (3-11) BUN 20 (6-23) mg/dl Creatinine 1.63 H D (0.6-1.2) mg/dl Est Cr Clr Drug Dosing Not Reportable Est GFR ( Amer) 32.0 ml/min Est GFR (Non-Af Amer) 27.6 ml/min BUN/Creatinine Ratio 12.3 (10-20) Glucose 168 H (70-99(Fasting)) mg/dl Calcium 9.6 (8.6-10.3) mg/dl Phosphorus Magnesium 2.0 (1.7-2.4) mg/dl Total Bilirubin 0.3 (0.2-1.0) mg/dl AST 42 H (13-39) U/L ALT 27 (7-52) U/L Alkaline Phosphatase 108 H (34-104) U/L Troponin I High Sens 1151.4 H* D (0-14) pg/ml Total Protein 7.4 (6.0-8.3) gm/dl Albumin 4.5 (3.4-5.0) gm/dl Globulin 2.9 (2.5-4.0) gm/dl Albumin/Globulin Ratio 1.6 (0.9-2) Lipase 24 (11-82) U/L Urine Color Urine Appearance (Clear) Urine pH (4.5-7.5) Ur Specific [place] (1.000-1.030) Urine Protein (Negative) Urine Glucose (UA) (Negative) Urine Ketones (Negative) Urine Blood (Negative) Urine Nitrite (Negative) Urine Bilirubin (Negative) Urine Urobilinogen (Negative) Ur Leukocyte Esterase (Negative) Urine WBC (Auto) (0-5) /hpf Urine RBC (Auto) (0-2) /hpf U Hyaline Cast (Auto) (0-2) /lpf U Epithel Cells (Auto) (0-2) /hpf Urine Bacteria (Auto) (None Seen) Hyaline Casts (None Presnt) /lpf Diagnostic Findings KUB X-Ray 01/11/24 01:58 KUB CLINICAL HISTORY: Abdominal pain. COMPARISON STUDY: None. FINDINGS: There is no radiographic evidence for a bowel obstruction. Multiple oval radiodensities within the right lower quadrant measure 1.2 cm. These may reflect ingested tablets within the cecum. The amount of stool is within normal limits. There is no evidence for free air on supine exam. IMPRESSION: No evidence for a bowel obstruction. ACT 112: Negative or not required by law. Electronically signed by: Diego Andino M.D. 01/11/2024 6:55 AM Chest X-Ray 01/11/24 03:50 XR chest 1V portable CLINICAL HISTORY: Increasing shortness of breath. COMPARISON STUDY: Chest radiograph January 11, 2024 at 2:19 AM. FINDINGS: There is no pneumothorax. There are trace bilateral pleural effusions. Interstitial thickening has progressed. No definite consolidation to suggest pneumonia. Cardiomediastinal silhouette is stable. Old left humeral neck fracture is incidentally noted. IMPRESSION: 1. Progression of moderate interstitial pulmonary edema. 2. Trace bilateral pleural effusions. ACT 112: Negative or not required by law. Electronically signed by: Diego Andino M.D. 01/11/2024 6:52 AM PG Care Time/CCT Total # of Minutes Spent Total Time Spent with Patient: Total time spent is greater than 50% in coordination of care (as documented) at patient's floor/unit and/or counseling patient: I spent 135 minutes overall addressing this case: 15 min in medical data review/discussion with referring provider(s) and/or preparation for the visit 25 min in direct interaction with the patient/exam 60 min in Advance Care Planning/Goals of Care discussions as detailed above in note (must be >16min) 15 min in subsequent review and synthesis of assessment and plan 20 min communicating with other providers regarding the patient's case: care mgt, nursing, primary team Advanced Care Planning 37501 Advanced Care Planning 30 Min 07334 Advanced Care Planning Additional 30 [place] [address] IN/OBS CONSULT LVL 5,80M (25 - SIGNIFICANT, SEPARATELY IDENTIFIABLE ) Patient Type New Medical Decision Making High Complexity Diagnoses Dyspnea and respiratory abnormalities R06.00; R06.89 Weakness generalized R53.1 Discussion about advance care planning held with family member Z71.0 Palliative care by specialist Z51.5 Additional Codes Advanced Care Planning - 54201 Advanced Care Planning 30 Min: 48327 Advanced Care Planning 30 Min ([id number]) Advanced Care Planning - 60281 Advanced Care Planning Additional 30 Min: 71166 Advanced Care Planning Additional 30 Min ([id number])
[2024-01-12 11:26] VITALS: BP 124/75; PULSE 76
[2024-01-12] MEDS ORDERED: ONDANSETRON INJ 2 MG/ML 2 ML VIAL IV PRN (14:29)
[2024-01-12] MEDS ORDERED: MoRPHine SULFATE 10 MG/0.5 ML UDP PO PRN (14:29)
[2024-01-12] MEDS ORDERED: GLYCOPYRROLATE 0.2 MG/ML VIAL IV PRN (14:29)
--- NOTE | 2024-01-12 18:27 | Hospitalist Progress Note ---
Date of Service January 12, 2024 Assessment & Plan (1) Acute heart failure: Plan: Ms. 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 Patient evaluated by Palliative Care with plans to discharge to [facility] on hospice. CELERY CUTTER instituted today #CELERY CUTTER Plan to dispo to [facility] with hospice tomorrow #NSTEMI #HFpEF continue asa cotinue home toprol xl Continue imdur #A-fib/recurrent DVT on Eliquis resume home eliquis Hypertension, elevated secondary illness Troponin elevated secondary to illness in the setting of worsening kidney dysfunction #hyperlipidemia, on statin Rx #prediabetes, hemoglobin A1c of 5.8 this month #hypothyroidism, TSH elevated continue synthroid #dementia, at baseline reorient downgrade to med surg DVT prophylaxis. resume Eliquis DNR as per family Admission and Anticipated Discharge Date Admission Date: January 11, 2024 Subjective NAEO Reports feeling chest pain free at this time No new concerns Son at beside, discussed events from earlier today Physical Exam Constitutional: WD/WN, vitals as above Respiratory: normal respiratory effort, lungs clear to auscultation Cardiovascular: RRR, no murmur, no edema Results & Data Results & Data Vital Signs (Past 12 Hours) Vital Signs Temp Pulse Pulse Resp BP Pulse Ox O2 Del Method 01/12/24 11:25 37.2 C 76 18 124/75 93 Room Air 01/12/24 07:50 75 01/12/24 07:50 37.2 C 73 18 138/81 93 Room Air Laboratory Results Short CBC 01/12/24 Range/Units 07:11 WBC 18.00 H (4.8-10.8) K/ul Hgb 14.0 (12.0-16.0) g/dl Hct 42.8 (37.0-47.0) % Plt Count 213 (130-400) K/uL BMP 01/12/24 01/12/24 07:11 08:20 Sodium TNP 132 L Potassium TNP 4.0 Chloride 96 L Carbon Dioxide 24 BUN 23 Creatinine 1.38 H Glucose 172 H Calcium 8.8 Medications Administered Home Medications Medication Instructions Recorded Confirmed Last Taken apixaban 2.5 mg tablet (Eliquis) 2.5 mg PO BID 01/09/24 01/11/24 01/09/24 cholecalciferol (vitamin D3) 25 25 mcg PO DAILY 01/09/24 01/11/24 01/09/24 mcg (1,000 unit) tablet (Vitamin D3) cyanocobalamin (vitamin B-12) 1,000 mcg PO DAILY 01/09/24 01/11/24 01/09/24 1,000 mcg tablet (Vitamin B-12) docusate sodium 50 mg capsule 250 mg PO HS 01/09/24 01/11/24 01/08/24 donepezil 5 mg tablet 2.5 mg PO QAM 01/09/24 01/11/24 01/09/24 levothyroxine 137 mcg tablet 137 mcg PO DAILYBB 01/09/24 01/11/24 01/09/24 melatonin 3 mg tablet 3 mg PO 01/09/24 01/11/24 01/08/24 metoprolol succinate 50 mg 50 mg PO 01/09/24 01/11/24 01/08/24 tablet,extended release 24 hr multivitamin 1 tab PO DAILY 01/09/24 01/11/24 01/09/24 omeprazole 20 mg capsule,delayed 20 mg PO QA 01/09/24 01/11/24 01/09/24 release sertraline 50 mg tablet 50 mg PO QA 01/09/24 01/11/24 01/09/24 simvastatin 20 mg tablet 20 mg PO 01/09/24 01/11/24 01/08/24 vitamins A,C,G-imkk-ofwzro 4,296 1 cap PO AMP 01/09/24 01/11/24 01/09/24 mcg-226 mg-90 mg capsule (PreserVision AREDS) isosorbide mononitrate 30 mg 30 mg PO DAILY #30 tabs 01/10/24 01/11/24 Unknown tablet,extended release 24 hr Active Medications Generic Name Dose Route Start Last Admin Trade Name Freq PRN Reason Stop Dose Admin Aspirin 81 mg 01/11/24 18:30 01/12/24 07:44 Aspirin 81 Mg Ectab PO 02/10/24 18:29 81 mg QAM RAFFAELE Administration Donepezil HCl 2.5 mg 01/11/24 09:00 01/12/24 07:41 Donepezil Hcl 5 Mg Tab PO 02/10/24 08:59 2.5 mg QAM RAFFAELE Administration Isosorbide Mononitrate 30 mg 01/11/24 09:00 01/12/24 07:49 Isosorbide Donley Extended Rel 30 Mg Tabcr PO 02/10/24 08:59 30 mg DAILY RAFFAELE Administration Levothyroxine Sodium 137 mcg 01/12/24 06:30 01/12/24 07:40 Levothyroxine Sodium 137 Mcg Tablet PO 02/11/24 06:29 137 mcg DAILYBB RAFFAELE Administration Melatonin 3 mg 01/11/24 21:00 01/11/24 20:35 Melatonin 3 Mg Tab PO 02/10/24 20:59 3 mg HS RAFFAELE Administration Metoprolol Succinate 50 mg 01/11/24 21:00 01/11/24 20:36 Metoprolol Succ 50mg Ext Rel Tab PO 02/10/24 20:59 50 mg HS RAFFAELE Administration Pantoprazole Sodium 40 mg 01/11/24 09:00 01/12/24 07:45 Pantoprazole 40 Mg Tab PO 02/10/24 08:59 40 mg QAM RAFFAELE Administration Protocol Sertraline HCl 50 mg 01/11/24 09:00 01/12/24 07:44 Sertraline Hcl 50 Mg Tablet PO 02/10/24 08:59 50 mg QAM RAFFAELE Administration Simvastatin 20 mg 01/11/24 21:00 01/11/24 20:36 Simvastatin 20 Mg Tab PO 02/10/24 20:59 20 mg HS RAFFAELE Administration
[2024-01-12] MEDS ORDERED: APIXABAN 2.5 MG TAB PO SCH (21:00)
--- NOTE | 2024-01-13 05:29 | Electrocardiogram Report ---
Test Reason : Blood Pressure : */* mmHG Vent. Rate : 78 BPM Atrial Rate : 78 BPM P-R Int : 180 ms QRS Dur : 68 ms QT Int : 398 ms P-R-T Axes : 68 33 -1 degrees QTcB Int : 453 ms Normal sinus rhythm ST depression, consider subendocardial injury Minor ST elevation, consider lateral injury pattern Abnormal ECG When compared with ECG of 10-Jan-2024 06:35, ST now depressed in Inferior leads ST now depressed in Anterior leads ST now elevated in lateral leads T wave inversion now evident in Anterior leads Confirmed by Sina Chatterjee ([id number]) on 01/13/2024 5:28:33 AM Referred By: [facility] Confirmed By: Sina Chatterjee
--- NOTE | 2024-01-13 05:31 | Electrocardiogram Report ---
Test Reason : Blood Pressure : */* mmHG Vent. Rate : 67 BPM Atrial Rate : 67 BPM P-R Int : 166 ms QRS Dur : 74 ms QT Int : 464 ms P-R-T Axes : 65 39 63 degrees QTcB Int : 490 ms Normal sinus rhythm Possible Left atrial enlargement Nonspecific ST abnormality Prolonged QT Abnormal ECG When compared with ECG of 11-Jan-2024 01:51, ST less depressed in Inferior leads ST less depressed in Anterior leads T wave inversion no longer evident in Anterior leads ST less elevated in Lateral leads Confirmed by Sina Chatterjee ([id number]) on 01/13/2024 5:30:45 AM Referred By: [facility] Confirmed By: Sina Chatterjee
--- NOTE | 2024-01-13 05:32 | Electrocardiogram Report ---
Test Reason : Blood Pressure : */* mmHG Vent. Rate : 76 BPM Atrial Rate : 76 BPM P-R Int : 136 ms QRS Dur : 58 ms QT Int : 428 ms P-R-T Axes : 56 57 8 degrees QTcB Int : 481 ms Sinus rhythm with frequent Premature ventricular complexes Septal infarct , age undetermined Marked ST abnormality, possible anterior subendocardial injury ST elevation, consider lateral injury pattern Prolonged QT Abnormal ECG When compared with ECG of 11-Jan-2024 02:55, ST more elevated in Lateral leads ST more depressed Anterior leads Premature ventricular complexes are now Present Confirmed by Sina Chatterjee ([id number]) on 01/13/2024 5:32:16 AM Referred By: [facility] Confirmed By: Sina Chatterjee
--- NOTE | 2024-01-13 08:00 | Discharge Summary ---
Discharge Summary Date of Service January 13, 2024 Principal Dx & Hospital Course #1 = Principal Diagnosis (1) Acute heart failure: Ms. 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 Patient evaluated by Palliative Care with plans to discharge to [facility] hospice. [employer] instituted on 01/11. Patient overnight. note to be performed by Dr. 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 Dye Medication Changes From Visit Admission HPI Per Admitting Provider History obtained from patient, family, and records. Limited history from patient secondary to dementia. Medical history significant for A-fib/recurrent DVT on Eliquis, hypertension, hyperlipidemia, CRI (baseline creatinine 1.3), prediabetes, hypothyroidism, dementia, mood disorder, past tobacco abuse. Recent confinement January 08, [id number] for NSTEMI. Patient family opted for medical management after discussing with cardiology. Patient discharged with Imdur prescription. Intermittent chest pain symptoms associated with SOB upon arrival at home. Achy abdominal pain without headache symptoms. Denies black/bloody stools. Compliant with medications. Minimal relief of chest pain with nitroglycerin tablet administration at home. SBP 200s upon arrival at the ER. NSS followed by Lasix administered at the ER. 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 Dye Updated Medication List Medication Instructions Recorded Confirmed Type apixaban 2.5 mg tablet (Eliquis) 2.5 mg PO BID 01/09/24 01/11/24 History cholecalciferol (vitamin D3) 25 25 mcg PO DAILY 01/09/24 01/11/24 History mcg (1,000 unit) tablet (Vitamin D3) cyanocobalamin (vitamin B-12) 1,000 mcg PO DAILY 01/09/24 01/11/24 History 1,000 mcg tablet (Vitamin B-12) docusate sodium 50 mg capsule 250 mg PO HS 01/09/24 01/11/24 History donepezil 5 mg tablet 2.5 mg PO QAM 01/09/24 01/11/24 History levothyroxine 137 mcg tablet 137 mcg PO DAILYBB 01/09/24 01/11/24 History melatonin 3 mg tablet 3 mg PO HS 01/09/24 01/11/24 History metoprolol succinate 50 mg 50 mg PO HS 01/09/24 01/11/24 History tablet,extended release 24 hr multivitamin 1 tab PO DAILY 01/09/24 01/11/24 History omeprazole 20 mg capsule,delayed 20 mg PO QAM 01/09/24 01/11/24 History release sertraline 50 mg tablet 50 mg PO QAM 01/09/24 01/11/24 History simvastatin 20 mg tablet 20 mg PO HS 01/09/24 01/11/24 History vitamins A,C,U-siuj-ggnagg 4,296 1 cap PO AMPM 01/09/24 01/11/24 History mcg-226 mg-90 mg capsule (PreserVision AREDS) isosorbide mononitrate 30 mg 30 mg PO DAILY #30 tabs 01/10/24 01/11/24 Rx tablet,extended release 24 hr Hospital Stay Data Consultations 01/11/24 03:54 ED Decision to Admit Stat 01/11/24 04:45 Consult Cardiology Routine 01/11/24 16:03 Consult Palliative Care Routine Total Time Total Time Spent Total Time Spent (In Minutes): 0
[2024-01-13] MEDS ORDERED: CEROVITE ADV FORMULA TAB PO SCH (09:00)
--- NOTE | 2024-01-13 21:44 | Electrocardiogram Report ---
Test Reason : Blood Pressure : */* mmHG Vent. Rate : 97 BPM Atrial Rate : 97 BPM P-R Int : 136 ms QRS Dur : 60 ms QT Int : 338 ms P-R-T Axes : 72 62 -46 degrees QTcB Int : 429 ms Normal sinus rhythm Marked ST abnormality, possible anterior subendocardial injury Abnormal ECG When compared with ECG of 11-Jan-2024 04:09, Premature ventricular complexes are no longer Present ST less elevated in Lateral leads Nonspecific T wave abnormality now evident in Lateral leads ST more depressed Anterior leads Confirmed by Sina Chatterjee ([id number]) on 01/13/2024 9:44:05 PM Referred By: [facility] Confirmed By: Sina Chatterjee
--- NOTE | 2024-01-14 08:04 | Death Pronouncement Note ---
Date of Service January 14, 2024 Pronouncement Note Admission Date January 11, 2024 Date and Time of Date of : 01/12/24 Time of : 20:05 Additional Data Confirmation of : no pulse, no respirations and no heart sounds Family: at bedside Attending physician: Dejan Dye MD
== END 2024-01-12 22:44 | disposition expired ==
LOC: ED 01:46 → SUATTDRO 04:44 → EDINP 04:44 → 2S 06:40